=== PATIENT | female | born 1985 | race Caucasian/White ===

== ENCOUNTER 2019-03-26 11:38 | Outpatient (CLI) | payer BC, SELFPAY ==
--- NOTE | 2019-03-26 11:57 | XR_ITS ---
WS: [id number] Right hip, AP and frog leg, 03/26/2019 Clinical Data: R HIP STRAIN Comparison: None. Findings: No fractures or dislocations are seen. The hip joint is intact. The soft tissues are not remarkable. The adjacent pelvis is normal. XR/XR hip RT 2-3V wo/w pel* [id number] Impression: Negative right hip.
--- NOTE | 2019-03-26 11:57 | XR_ITS ---
WS: [id number] Lumbar spine, AP, lateral, L5-S1 spot, both obliques and flexion and extension laterals, 03/26/2019 Clinical Data: LOW BACK PAIN Comparison: None. Findings: No compression fractures or subluxation is seen. There is narrowing of the L5-S1 disc space. The villalta sverse processes and SI joints are normal. The oblique films show no spondylolysis. There is a 0.82 cm calcification overlying the central portion of the right kidney which may represen t a renal calculus. There are clips in the right upper quadrant from a cholecystectomy. There is a la rge amount of fecal material throughout the transverse and ascending colons. On flexion and extension there is no limitation of motion or subluxation. XR/XR lumbar spine 6V w f/e [id number] Impression: 1. L5-S1 degenerative disc disease. 2. Negative for limitation of motion or subluxation on flexion or extension. 3. Possible right renal calculus.
--- NOTE | 2019-03-26 11:57 | XR_ITS ---
WS: [id number] Right knee, 3 views, 03/26/2019 Clinical Data: KNEE PAIN Comparison: None. Findings: No fractures or dislocations are seen. The joint spaces are normal. The patella is intact. The soft t issues are unremarkable. XR/XR knee RT 3V* [id number] Impression: Negative right knee.
== END 2019-03-26 11:39 | disposition home or self-care (01) ==
LOC: RAD 11:43
PROVIDERS: Family Provider Nurse Practitioner Family; PCP Nurse Practitioner Family; Visit Provider Nurse Practitioner Family
DX: M51.37 Other intervertebral disc degeneration, lumbosacral region (principal); M25.561 Pain in right knee; M25.551 Pain in right hip
CPT/HCPCS: 72114; 73502; 73562

== ENCOUNTER → 2019-04-08 14:13 | Outpatient (BNVA) | payer BC, SELFPAY | PROVIDERS: Family Provider Nurse Practitioner Family; PCP Nurse Practitioner Family; Visit Provider Registered Nurse | DX: J18.9 Pneumonia, unspecified organism (principal); R05 Cough | CPT/HCPCS: 87804 ==

== ENCOUNTER → 2020-05-01 09:45 | Outpatient (BNVA) | payer OTHER, SELFPAY | PROVIDERS: Family Provider Nurse Practitioner Family; PCP Nurse Practitioner Family; Visit Provider Nurse Practitioner Women's Health | DX: N85.2 Hypertrophy of uterus (principal); R10.11 Right upper quadrant pain; R10.31 Right lower quadrant pain | CPT/HCPCS: 76830 ==

== ENCOUNTER → 2020-05-05 10:45 | Outpatient (BNVA) | payer OTHER, SELFPAY | PROVIDERS: Family Provider Nurse Practitioner Family; PCP Nurse Practitioner Family; Visit Provider Nurse Practitioner Women's Health | DX: E28.2 Polycystic ovarian syndrome (principal); R10.11 Right upper quadrant pain | CPT/HCPCS: 81025 ==

== ENCOUNTER 2020-05-18 11:22 | Outpatient (RCR) | payer OTHER, SELFPAY | END 2020-05-24 23:59 | disposition home or self-care (01) | LOC: SPT 11:22 | PROVIDERS: PCP Nurse Practitioner Family; Referring Provider Nurse Practitioner Family; Visit Provider Nurse Practitioner Family | DX: M54.17 Radiculopathy, lumbosacral region (principal) | CPT/HCPCS: 97110; 97161 ==

== ENCOUNTER 2020-05-25 06:00 | Outpatient (RCR) | payer OTHER, SELFPAY | END 2020-06-23 23:59 | disposition home or self-care (01) | LOC: SPT 06:00 | PROVIDERS: PCP Nurse Practitioner Family; Referring Provider Nurse Practitioner Family; Visit Provider Nurse Practitioner Family | DX: M54.16 Radiculopathy, lumbar region (principal) | CPT/HCPCS: 97110 ==

== ENCOUNTER → 2020-07-03 08:08 | Outpatient (BNVA) | payer OTHER, SELFPAY | PROVIDERS: PCP Nurse Practitioner Family; Visit Provider Nurse Practitioner Women's Health | DX: N93.9 Abnormal uterine and vaginal bleeding, unspecified (principal); N83.8 Other noninflammatory disorders of ovary, fallopian tube and broad ligament | CPT/HCPCS: 76830 ==

== ENCOUNTER → 2020-07-07 11:42 | Outpatient (BNVA) | payer OTHER, SELFPAY | PROVIDERS: PCP Nurse Practitioner Family; Visit Provider Nurse Practitioner Women's Health | DX: E28.2 Polycystic ovarian syndrome (principal); N93.9 Abnormal uterine and vaginal bleeding, unspecified; N20.0 Calculus of kidney; Z79.899 Other long term (current) drug therapy | CPT/HCPCS: 83036; 84439; 84443; 85025 ==

== ENCOUNTER 2020-07-20 11:09 | Emergency (ER) | payer OTHER, SELFPAY ==
[2020-07-20 11:30] VITALS: BP 143/83; PULSE 94; RESP 15; TEMP 36.9; O2SAT 98; BMI 40.2
--- NOTE | 2020-07-20 11:45 | CT_ITS ---
WS: [id number] CT ABDOMEN AND PELVIS WITH CONTRAST HISTORY: RIGHT lower quadrant pain for 2 1/2 years. TECHNIQUE: Imaging performed of the abdomen and pelvis with IV contrast. Single phase imaging of the abdomen. Coronal and sagittal reformats are submitted. All CT scans at [facility] use at least one of these dose optimization techniques: automated exposure control; mA and/or kV adjustment per patient size (includes targeted exams where dose is matched to clinical indication); or iterativ e reconstruction. IV CONTRAST: Omnipaque 300; 95 mL IV. Oral contrast: No DLP: 1926.53 mGy.cm COMPARISON: None available. Lower thorax: Lung bases are clear. Heart is normal size. No hiatal hernia. Liver/biliary system: Normal size with hepatic steatosis. Normal portal vein. Gallbladder: Status post cholecystectomy. Pancreas: Normal size pancreas and pancreatic duct. No adjacent inflammation. Spleen: Normal size spleen. No mass or infarct. Adrenal glands: Normal. Right kidney: Normal size kidney. There is a moderate-sized extrarenal pelvis. Extrarenal pelvis is 9 mm calcification not causing obstruction. Left kidney: Normal. Aorta: Normal. Lymphadenopathy: None. Free fluid: None. GI tract: Normal appendix. No GI tract obstruction. No mucosal thickening or increased fluid. Abdominal wall: Fat-containing umbilical hernia. Defect in the anterior abdominal wall is 3.2 cm. Pelvis: Normal size anteverted uterus. Small amount of increased fluid in the endometrial canal may b e related to menses. RIGHT ovarian cyst measures 3.0 cm. No free fluid. Follicle measuring 2.6 cm LEF T ovary. Bones: Unremarkable. CT/CT abdomen pelvis w con* [id number] IMPRESSION: 1. Normal appendix. 2. Small RIGHT ovarian cyst and small LEFT ovarian follicle. 3. Prominent RIGHT extrarenal pelvis. There is a nonobstructing 9 mm calcifica tion in the dependent portion of the renal pelvis. 4. Prior cholecystectomy.
--- NOTE | 2020-07-20 11:50 | ED_ITS ---
HPI - Abdominal Pain General: Chief Complaint: Abdominal Pain Stated Complaint: R sides abd pain Time Seen by Provider: 07/20/20 11:42 History of Present Illness: HPI narrative: 35 yo female with abd pain for hte last 2 yrs. She has had lobby porter and urology workups with no definitive findings. Denies any regular vomiting. She is no hematemesis coffee-ground emesis. Patient has had a cholecystectomy. She is not had appendectomy. She had section x2. She denies any medic easy melena hematemesis [place] emesis no association with urination no hematuria. MD elicited complaint: abdominal pain Pertinent past history: other (Previous gynecologic and urologic work-up negative) Onset (ago): year(s) (2) Pain Consistency: intermittent Location: RLQ and R flank Severity: moderate Quality: cramping and stabbing Radiation: R flank Exacerbating factors: nothing Relieving factors: nothing Associated Symptoms: Reports bloating, GI cramping and nausea; Denies anorexia, belching, change in bowel habits, change in stool character, chills, coffee ground emesis, constipation, diarrhea, dyspepsia, dysuria, excessive flatus, fever(s), heartburn, hematochezia, hematuria, hematemesis, fecal incontinence, loose stools, melena, poor appetite, syncope and vomiting Review of Systems Const: Denies: fever(s) or chills ENMT: Denies: throat pain, ear or mastoid pain, nasal discharge or nasal congestion Card: Denies: syncope Resp: Denies: dyspnea, productive cough or non-productive cough GI: Reports: nausea, bloating and GI cramping; Denies: vomiting, hematemesis, coffee ground emesis, heartburn, diarrhea, constipation, belching, excessive flatus, fecal incontinence, change in bowel habits, change in stool character, hematochezia or melena : Denies: dysuria or hematuria Skin/Breast: Denies: rash or pruritus PFSH ED PFSH: Medical History DDD (degenerative disc disease), lumbosacral No pertinent past medical history neghx: htn,dm,thyroid,dvt/pe PCP: VICKIE Tinajero PCOS (polycystic ovarian syndrome) Vitamin D deficiency Surgical History Hx of section 1) 10/26/2009 2) 11/29/2014 Hx of cholecystectomy Family History Mother Diabetes Heart disease Hypertension Uterine cancer dx age 25 Denies family history of Colon cancer Ovarian cancer Hypercholesteremia Breast cancer Stroke Physical Exam Const: COMMON NORMALS: no acute distress GENERAL APPEARANCE: cooperative and comfortable ORIENTATION/CONSCIOUSNESS: Yes awake, Yes oriented to person, Yes oriented to place and Yes oriented to time HENMT: COMMON NORMALS: normocephalic, atraumatic and hearing grossly normal bilaterally HEAD & SCALP: normocephalic and atraumatic Neck/C-Spine: COMMON NORMALS: no JVD Resp: COMMON NORMALS: normal respiratory effort, No retractions, No use of accessory muscles and clear to auscultation bilaterally AUSCULTATION: clear to auscultation bilaterally Cardio: COMMON NORMALS: no JVD, regular rate, regular rhythm and No murmurs present (Cardio) RATE: regular rate RHYTHM: regular rhythm GI: COMMON NORMALS: Soft to palpation and No hepatosplenomegaly present AUSCULTATION: Yes normoactive bowel sounds PALPATION: Yes Soft to palpation, No Tenderness to palpation present (GI), No Guarding due to palpation present (GI) and Yes No hepatosplenomegaly present Extremity: COMMON NORMALS: normal to inspection, capillary refill normal, no clubbing, cyanosis or edema, no calf tenderness and no pedal edema Neuro: SENSORIUM/ORIENTATION: Yes oriented to person, Yes oriented to place and Yes oriented to time Skin: COMMON NORMALS: no rashes or lesions noted GENERAL SKIN EXAM: no rashes or lesions noted Course Vital Signs: Vital signs: Vital Signs Temperature 98.4 F 07/20/20 11:30 Pulse Rate 90 07/20/20 16:32 Respiratory Rate 18 07/20/20 16:32 Blood Pressure 139/72 07/20/20 16:32 Pulse Oximetry 98 07/20/20 16:32 MDM - Abdominal Pain MDM Narrative: Medical decision making narrative: No definitive findings at this time. I would suggest she be seen by her primary care and follow-up with surgery she should have endoscopy if that is negative recommend the Nexium she does consider GI consult she may need to be evaluated for sphincter of Oddi disease. Lab Data: Labs: Lab Results 07/20/20 07/20/20 07/20/20 Range/Units 12:43 12:43 12:43 WBC Cancelled Corrected WBC Cancelled RBC Cancelled Hgb Cancelled Hct Cancelled MCV Cancelled MCH Cancelled MCHC Cancelled RDW Cancelled Plt Count Cancelled MPV Cancelled Gran % Cancelled Neut % (Auto) Cancelled Lymph % (Auto) Cancelled [place] % (Auto) Cancelled Eos % (Auto) Cancelled Baso % (Auto) Cancelled Neut # (Auto) Cancelled Lymph # (Auto) Cancelled [place] # (Auto) Cancelled Eos # (Auto) Cancelled Baso # (Auto) Cancelled Absolute Gran (aut o) Cancelled Nucleated RBC % (a uto) Cancelled Nucleated RBCs # Cancelled Sodium Cancelled Potassium Cancelled Chloride Cancelled Carbon Dioxide Cancelled Anion Gap Cancelled BUN Cancelled Creatinine Cancelled GFR Calculation Cancelled Glucose Cancelled Calculated Osmolal ity Cancelled Calcium Cancelled Total Bilirubin Cancelled AST Cancelled ALT Cancelled Alkaline Phosphata se Cancelled Total Protein Cancelled Albumin Cancelled Globulin Cancelled Lipase Cancelled HCG, Qual Cancelled Ser , [place] i-Qnt mIU/mL Urine Color (Yellow) Urine Appearance (CLEAR) Urine pH (5-7) Ur Specific Gravit y (1.005-1.030) Urine Protein (Negative) Urine Glucose (UA) (Normal) Urine Ketones (Negative) Urine Blood (Negative) Urine Nitrate (Negative) Urine Bilirubin (Negative) Urine Urobilinogen (Negative) mg/dL Ur Leukocyte [place] a[place] (Negative) Urine RBC (0-2) /hpf Urine WBC (0-5) /hpf Ur Squamous Epith Cells (0-5) /hpf Amorphous Sediment Urine Bacteria (NONE) /hpf 07/20/20 07/20/20 07/20/20 Range/Units 12:43 14:01 14:26 WBC Corrected WBC RBC Hgb Hct MCV MCH MCHC RDW Plt Count MPV Gran % Neut % (Auto) Lymph % (Auto) [place] % (Auto) Eos % (Auto) Baso % (Auto) Neut # (Auto) Lymph # (Auto) [place] # (Auto) Eos # (Auto) Baso # (Auto) Absolute Gran (aut o) Nucleated RBC % (a uto) Nucleated RBCs # Sodium 139 Potassium 3.6 Chloride 103 Carbon Dioxide 20 L Anion Gap 19.6 H BUN 10 Creatinine 0.5 GFR Calculation 141.2 H Glucose 79 Calculated Osmolal ity 286 Calcium 9.4 Total Bilirubin 0.3 AST 18 ALT 26 Alkaline Phosphata se 76 Total Protein 8.0 Albumin 4.9 Globulin 3.1 Lipase 31 HCG, Qual Negative Ser , [place] i-Qnt 0.50 mIU/mL Urine Color Yellow (Yellow) Urine Appearance Hazy A (CLEAR) Urine pH 7 (5-7) Ur Specific Gravit y 1.010 (1.005-1.030) Urine Protein Neg (Negative) Urine Glucose (UA) Norm (Normal) Urine Ketones Negative (Negative) Urine Blood 3+ H (Negative) Urine Nitrate Negative (Negative) Urine Bilirubin Neg (Negative) Urine Urobilinogen Norm (Negative) mg/dL Ur Leukocyte [place] Negative (Negative) Urine RBC 0-4 H (0-2) /hpf Urine WBC 0-4 H (0-5) /hpf Ur Squamous Epith Cells Rare (0-5) /hpf Amorphous Sediment Not Reportable Urine Bacteria Trace (NONE) /hpf 07/20/20 Range/Units 14:26 WBC 8.4 Corrected WBC RBC 4.55 Hgb 13.3 Hct 40.5 MCV 89.0 MCH 29.2 MCHC 32.8 RDW 12.9 Plt Count 309 MPV 11.3 H Gran % Neut % (Auto) 67.8 Lymph % (Auto) 24.5 [place] % (Auto) 5.5 Eos % (Auto) 1.2 Baso % (Auto) 0.8 Neut # (Auto) 5.67 Lymph # (Auto) 2.1 [place] # (Auto) 0.5 Eos # (Auto) 0.1 Baso # (Auto) 0.1 Absolute Gran (aut o) Nucleated RBC % (a uto) 0 Nucleated RBCs # 0.0 Sodium Potassium Chloride Carbon Dioxide Anion Gap BUN Creatinine GFR Calculation Glucose Calculated Osmolal ity Calcium Total Bilirubin AST ALT Alkaline Phosphata se Total Protein Albumin Globulin Lipase HCG, Qual Ser , [place] i-Qnt mIU/mL Urine Color (Yellow) Urine Appearance (CLEAR) Urine pH (5-7) Ur Specific Gravit y (1.005-1.030) Urine Protein (Negative) Urine Glucose (UA) (Normal) Urine Ketones (Negative) Urine Blood (Negative) Urine Nitrate (Negative) Urine Bilirubin (Negative) Urine Urobilinogen (Negative) mg/dL Ur Leukocyte [place] a[place] (Negative) Urine RBC (0-2) /hpf Urine WBC (0-5) /hpf Ur Squamous Epith Cells (0-5) /hpf Amorphous Sediment Urine Bacteria (NONE) /hpf Discharge Plan Discharge Patient Disposition: Home Clinical Impression: Chronic abdominal pain Condition: Stable Prescriptions: No Action multivitamin Tablet 1 tab PO PRN RF: 0 medroxyprogesterone 10 mg tablet 10 mg PO DAILY PRN (Reason: polycystic ovarian syndrome) RF: 0 Prilosec 20 mg Capsule,Delayed Release(Dr/Ec) 20 mg PO PRN RF: 0 Mery Apple Cider Vinegar Gummy 1 - 2 tab PO TID PRN (Reason: unknown) RF: 0 clindamycin-benzoyl peroxide 1-5 % gel 1 applic TOPICAL DAILY PRN (Reason: acne) RF: 0 norethindrone acetate 5 mg tablet 5 mg PO DAILY@11 RF: 0 Discharge Orders: Discharge ED (Routine); Ordered 07/20/20 Ordered By: Sanchez Wheeler Referrals: Gina Nayak [Primary Care Provider] - Patient Instructions: Abdominal Pain (ED), Opioid Safety Activity Restrictions/Additional Instructions: Follow-up with your primary care doctor Coding Level of Care Code ED Sales Operations Specialist for Chg Fwd Exam Comprehensive
[2020-07-20 14:00] LABS: Add Urine Microscopic? YES; Bacteria Urine TRACE /hpf; Bilirubin Urine Neg (Negative); Blood Urine 3+ (Negative); Glucose Urine UA Norm (Normal); Ketones Urine Negative (Negative); Leukocyte Esterase Urine Negative (Negative); Nitrate Urine Negative (Negative); Protein Urine Neg (Negative); RBC Urine 0-4 /hpf (0-2); Squamous Epithelial Cell Urine RARE /hpf (0-5); Urine Appearance Hazy (CLEAR); Urine Color Yellow (Yellow); Urobilinogen Urine Norm (Negative); WBC Urine 0-4 /hpf (0-5); pH Urine 7 (5-7)
[2020-07-20 14:32] LABS: Basophils # 0.1 10^3/uL (0.0-0.1); Basophils % 0.8 %; Eosinophils # 0.1 10^3/uL (0.0-0.8); Eosinophils % 1.2 %; Hematocrit 40.5 % (37.0-47.0); Hemoglobin 13.3 g/dL (11.5-15.3); Lymphocytes # 2.1 10^3/uL (0.8-4.8); Lymphocytes % 24.5 %; Mean Corpuscular HGB Conc 32.8 g/dL (30.0-36.0); Mean Corpuscular Hemoglobin 29.2 pg (28.0-34.0); Mean Platelet Volume 11.3 fL (7.4-10.4); Monocytes # 0.5 10^3/uL (0.2-0.9); Monocytes % 5.5 %; Neutrophils # 5.67 10^3/uL (1.8-7.7); Neutrophils % 67.8 %; Nucleated Red Blood Cells % 0 %; Platelet Count 309 10^3/cmm (130-400); Red Blood Count 4.55 10^6/uL (4.1-5.3); Red Cell Distribution Width 12.9 % (12.1-15.1); White Blood Count 8.4 10^3/uL (4.0-10.0)
[2020-07-20 14:45] LABS: Alanine Aminotransferase 26 U/L (0-33); Albumin Level 4.9 g/dL (3.5-5.2); Alkaline Phosphatase 76 IU/L (35-105); Aspartate Amino Transferase 18 U/L (0-32); Blood Urea Nitrogen 10 mg/dL (6-20); Calcium 9.4 mg/dL (8.5-10.5); Carbon Dioxide 20 mmol/L (22-29); Chloride 103 mmol/L (98-107); Globulin 3.1 g/dL (1.3-4.6); Glomerular Filtration Rate 141.2 mL/min (90-130); Glucose 79 mg/dL (65-115); Lipase 31 U/L (13-60); Osmolality Calculated 286 mOsm/kg (285-295); Sodium 139 mmol/L (136-145); Total Bilirubin 0.3 mg/dL (0.15-1.2)
[2020-07-20 14:47] LABS: Anion Gap 19.6 (5-19); Potassium 3.6 mmol/L (3.5-5.1)
[2020-07-20] MEDS: iohexol 300 mg/mL 100 mL Btl IV (14:49)
[2020-07-20 14:52] LABS: HCG, Serum Qual Negative (Negative)
[2020-07-20 16:32] VITALS: BP 139/72; PULSE 90; RESP 18; O2SAT 98
== END 2020-07-20 16:33 | disposition home or self-care (01) ==
PROVIDERS: Emergency Provider Family Medicine; PCP Nurse Practitioner Family
DX: G89.29 Other chronic pain (principal); R10.9 Unspecified abdominal pain
CPT/HCPCS: 74177; 80053; 81001; 83690; 84702; 84703; 85025; 99283; Q9967

== ENCOUNTER → 2020-07-27 15:05 | Outpatient (BNVA) | payer OTHER, SELFPAY | PROVIDERS: PCP Nurse Practitioner Family; Visit Provider Obstetrics & Gynecology | DX: N93.9 Abnormal uterine and vaginal bleeding, unspecified (principal); N92.0 Excessive and frequent menstruation with regular cycle | CPT/HCPCS: 80053; 85025; 87635 ==

== ENCOUNTER 2020-07-28 06:00 | Outpatient (CLI) | payer OTHER, SELFPAY ==
[2020-07-28 09:43] VITALS: BMI 38.9
[2020-07-28 12:09] LABS: Basophils # 0.1 10^3/uL (0.0-0.1); Basophils % 0.8 %; Eosinophils # 0.1 10^3/uL (0.0-0.8); Eosinophils % 1.4 %; Hematocrit 29.2 % (37.0-47.0); Hemoglobin 9.6 g/dL (11.5-15.3); Lymphocytes # 2.3 10^3/uL (0.8-4.8); Lymphocytes % 29.4 %; Mean Corpuscular HGB Conc 32.9 g/dL (30.0-36.0); Mean Corpuscular Hemoglobin 29.4 pg (28.0-34.0); Mean Corpuscular Volume 89.6 fL (81-99); Mean Platelet Volume 11.4 fL (7.4-10.4); Monocytes # 0.4 10^3/uL (0.2-0.9); Monocytes % 4.7 %; Neutrophils # 4.99 10^3/uL (1.8-7.7); Neutrophils % 63.1 %; Nucleated Red Blood Cells % 0 %; Platelet Count 343 10^3/cmm (130-400); Red Blood Count 3.26 10^6/uL (4.1-5.3); White Blood Count 7.9 10^3/uL (4.0-10.0)
--- NOTE | 2020-07-28 15:48 | P.ANESASSM_ITS ---
Pre-Anesthetic Assessment Pre-Anesthetic Assessment: Height/Weight: Height 1.6 m Weight 99.79 kg Preop Diagnosis: menorrhagia Proposed Procedure: Operation Date: 08/01/20 11:00 Proposed Procedures p Hysteroscopy w/ Myosure [id number] N92.0(Not Applicable) - Jane Thomas MD s Dilation And Curettage (D&C) [id number] 14647 N92.0(Not Applicable) - Jane Thomas MD Was Beta Jessica taken within 24 hours: N/A Was Clonidine taken within 24 hours: N/A Social: Social History: No alcohol and No tobacco Exam: Pre-Anes Outpt Exam: alert, oriented x 3, clear to auscultation bilaterally and regular rate & rhythm Airway: Submandibular: WNL Cervical ROM: WNL MP: 2 Dentition: Full GI: GI: GERD Metabolic: Metabolic: Morbid obesity Musc/skel: Musc/skel: Lower Back Pain Neuropsych: Neuropsych: Anxiety and Depression Anesthetic Plan: ASA status: 2 Anesthesia: General Other: PONV--?TIVA Risk of > 500 ml blood loss (7ml/kg in children): No PFSH Anesthesia PFSH: Medical History DDD (degenerative disc disease), lumbosacral No pertinent past medical history neghx: htn,dm,thyroid,dvt/pe PCP: VICKIE Tinajero PCOS (polycystic ovarian syndrome) Vitamin D deficiency Surgical History Hx of section 1) 10/26/2009 2) 11/29/2014 Hx of cholecystectomy Family History Mother Diabetes Heart disease Hypertension Uterine cancer dx age 25 Denies family history of Colon cancer Ovarian cancer Hypercholesteremia Breast cancer Stroke Data Anesthesia CBC & Chem 7: 07/28/20 10:25 Other Labs: Laboratory Results - last 48 hr 07/28/20 10:25 WBC 7.9 RBC 3.26 L Hgb 9.6 L Hct 29.2 L MCV 89.6 MCH 29.4 MCHC 32.9 RDW 13.0 Plt Count 343 MPV 11.4 H Neut % (Auto) 63.1 Lymph % (Auto) 29.4 [place] % (Auto) 4.7 Eos % (Auto) 1.4 Baso % (Auto) 0.8 Neut # (Auto) 4.99 Lymph # (Auto) 2.3 [place] # (Auto) 0.4 Eos # (Auto) 0.1 Baso # (Auto) 0.1 Nucleated RBC % (auto) 0 Nucleated RBCs # 0.0 Cardiac Studies: No Data to Display
== END 2020-07-28 06:01 | disposition home or self-care (01) ==
LOC: LAB 07-10 08:24
PROVIDERS: PCP Nurse Practitioner Family; Visit Provider Obstetrics & Gynecology
DX: N92.0 Excessive and frequent menstruation with regular cycle (principal)
CPT/HCPCS: 85025

== ENCOUNTER 2020-07-29 20:59 | Observation (INO) | payer OTHER, SELFPAY ==
[2020-07-29] VITALS (8 sets, daily range): BP systolic 139–161; BP diastolic 83–94; PULSE 100–123; RESP 17–19; TEMP 36.6–37.4; O2SAT 98–100; BMI 38.9
--- NOTE | 2020-07-29 21:00 | ECG_ITS ---
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 Measurements Intervals [place] Rate: 123 P: 21 SC: 144 QRS: 21 QRSD: 87 T: -7 QT: 337 QTc: 483 Interpretive Statements SINUS TACHYCARDIA NONSPECIFIC T-WAVE ABNORMALITY Compared to ECG 09/17/2018 22:28:23 T-wave abnormality now present Sinus rhythm no longer present Electronically Signed On 07-30-2020 22:14:50 CDT by Marcio Mac M.D. [id number]
[2020-07-29] MEDS: sodium chloride 0.9% 1,000 ML 999 ML IV (21:13)
[2020-07-29 21:18] LABS: Basophils # 0.1 10^3/uL (0.0-0.1); Basophils % 0.5 %; Eosinophils # 0.1 10^3/uL (0.0-0.8); Eosinophils % 0.6 %; Hematocrit 21.2 % (37.0-47.0); Hemoglobin 7.3 g/dL (11.5-15.3); Lymphocytes % 25.4 %; Mean Corpuscular HGB Conc 34.4 g/dL (30.0-36.0); Mean Corpuscular Hemoglobin 29.6 pg (28.0-34.0); Mean Corpuscular Volume 85.8 fL (81-99); Mean Platelet Volume 11.1 fL (7.4-10.4); Monocytes # 0.6 10^3/uL (0.2-0.9); Monocytes % 5.3 %; Neutrophils # 7.91 10^3/uL (1.8-7.7); Neutrophils % 67.6 %; Nucleated Red Blood Cells % 0 %; Platelet Count 334 10^3/cmm (130-400); Red Blood Count 2.47 10^6/uL (4.1-5.3); White Blood Count 11.7 10^3/uL (4.0-10.0)
--- NOTE | 2020-07-29 21:19 | ED_ITS ---
HPI - Female Genitourinary General: Chief complaint: Vaginal Bleeding Stated complaint: VAG BLEEDING Time Seen by Provider: 07/29/20 20:59 History of Present Illness: HPI Narrative: The patient is a 35-year-old female who comes to the ER complaining of vaginal bleeding. She was transferred from [facility]. She was sent for significant vaginal bleeding and hemoglobin of 7.9. The patient says it started with her period a few months back where she had some spotting and each. Continue to get stronger. Over the last week she has been changing a super tampon an hour and was told to come to the ER today by Dr. Thomas. She felt like she was hyperventilating and not able to make it to [facility] so she went to [facility] and was stabilized, given 2 L of fluid and transferred here. Her hemoglobin was 7.9 there. MD elicited complaint: vaginal bleeding Location of symptoms: vaginal Severity: moderate Quality of pain: cramping Vaginal bleeding: bright red Associated symptoms: Deny abdominal pain or headache(s) Date of Last Menstrual Period: 07/29/20 Review of Systems General: Reports: 10 or more systems reviewed and unremarkable except in HPI and below Const: Denies: fatigue Eyes: Denies: change in vision, blurry vision or eye redness ENMT: Denies: throat pain, swelling of lips/tongue, ear or mastoid pain or nasal congestion Card: Denies: chest pain, palpitations, irregular heart rhythm, edema, dyspnea on exertion or orthopnea Resp: Denies: dyspnea, productive cough or non-productive cough GI: Denies: abdominal pain, diarrhea or GI cramping : Denies: flank pain, difficulty voiding, urinary frequency or urinary urgency Musc: Denies: neck pain, back pain, extremity pain, joint pain, joint redness, limited range of motion or muscle weakness Skin/Breast: Denies: rash, pruritus, erythema, skin pain or skin tenderness Neuro: Denies: headache(s), numbness in extremities, weakness in extremities, sensory changes, difficulty walking, dizziness, confusion or Slurred speech present Psych: Reports: anxiety; Denies: depression Endo: Denies: polyuria All/Imm: Denies: urticaria, throat swelling or tongue swelling PFSH ED PFSH: Medical History DDD (degenerative disc disease), lumbosacral No pertinent past medical history neghx: htn,dm,thyroid,dvt/pe PCP: VICKIE Tinajero PCOS (polycystic ovarian syndrome) Vitamin D deficiency Surgical History Hx of section 1) 10/26/2009 2) 11/29/2014 Hx of cholecystectomy Family History Mother Diabetes Heart disease Hypertension Uterine cancer dx age 25 Denies family history of Colon cancer Ovarian cancer Hypercholesteremia Breast cancer Stroke Female Reproductive History: Date of last menstrual period: 07/29/20 Physical Exam Const: COMMON NORMALS: no acute distress, average body habitus, patient oriented x3, no limitations, healthy appearing, alert and well nourished G ENERAL APPEARANCE: cooperative, comfortable, well kempt, well developed and anxious ORIENTATION/CONSCIOUSNESS: Yes awake, Yes oriented to person, Yes oriented to place and Yes oriented to time HENMT: COMMON NORMALS: normocephalic, external ears normal and Normal external nose present HEAD & SCALP: normal to inspection and normocephalic NOSE: Normal external nose present EXTERNAL EAR: Yes external ears normal MOUTH: Normal oral and palatal mucosa present THROAT: posterior oropharynx normal Eye: COMMON NORMALS: Equal, round and reactive pupils present and EOMs intact bilaterally GENERAL EYE: appearance normal, both eyes and all related structures PUPIL: Yes Equal, round and reactive pupils present Neck/C-Spine: COMMON NORMALS: full ROM, no lymphadenopathy, no meningeal signs and no JVD GENERAL: Yes normal visual inspection Lymph: LYMPHATIC: no lymphadenopathy noted Chest: COMMONS NORMALS: normal inspection of the chest and normal palpation of entire chest wall Resp: COMMON NORMALS: normal respiratory effort, No retractions, No use of accessory muscles, clear to auscultation bilaterally and percussion normal EFFORT & INSPECTION: Yes able to speak in complete sentences AUSCULTATION: clear to auscultation bilaterally PERCUSSION: percussion normal Cardio: COMMON NORMALS: no JVD, regular rate, regular rhythm, S1 normal heart sound present, S2 normal heart sound present and Peripheral pulses 2+ throughout RATE: regular rate RHYTHM: regular rhythm HEART SOUNDS: S1 normal heart sound present and S2 normal heart sound present PERIPHERAL PULSES: Peripheral pulses 2+ throughout GI: COMMON NORMALS: Normal to inspection, nondistended, normoactive bowel sounds present, Soft to palpation, non-tender and no masses INSPECTION: Yes normal to inspection PALPATION: Yes Soft to palpation : COMMON NORMALS: Yes no CVA tenderness BLADDER/KIDNEY EXAM: Yes no CVA tenderness Back/Pelvis: COMMON NORMALS: no CVA tenderness, thoracic and lumbar spine normal to inspection, no thoracic nor lumbar tenderness and thoraco-lumbar ROM normal Extremity: COMMON NORMALS: normal to inspection, full ROM, capillary refill normal, no joint enlargement and no pedal edema GENERAL: Yes normal exam except as noted Neuro: COMMON NORMALS: patient oriented x3, CN's II-XII intact bilaterally, moves all extremities, no focal motor deficits, no sensory deficits noted and gait normal SENSORIUM/ORIENTATION: Yes alert, Yes oriented to person, Yes oriented to place and Yes oriented to time MENINGEAL SIGNS: Yes no meningeal signs Psych: COMMON NORMALS: mental status grossly normal, Normal thought process present, cooperative, normal affect and speech normal APPEARANCE: Yes well kempt ATTITUDE: Yes calm SPEECH: Yes normal speech THOUGHT PROCESS: Normal thought process present Skin: COMMON NORMALS: no rashes or lesions noted GENERAL SKIN EXAM: no rashes or lesions noted Course Vital Signs: Vital signs: Vital Signs Temperature 99.3 F 07/29/20 22:19 Pulse Rate 108 H 07/29/20 22:19 Respiratory Rate 18 07/29/20 22:19 Blood Pressure 160/94 07/29/20 22:19 Pulse Oximetry 98 07/29/20 22:19 MDM - Female MDM Narrative: Medical decision making narrative: Patient's hemoglobin 7.3. Hours ago it was 7.9. She was given 2 L of fluid during that time. Discussed with Dr. Thomas that she continues to bleed and recommended she come evaluate for possible surgery. She is on her way to see her. Dr. Thomas is here, has seen the patient, and accepts to OB. She will be transfused 1 unit of PRBCs. Lab Data: Labs: Lab Results 07/29/20 07/29/20 07/29/20 Range/Units 21:06 21:06 21:06 WBC 11.7 H (4.0-10.0) 10^3/ uL RBC 2.47 L (4.1-5.3) 10^6/u L Hgb 7.3 L (11.5-15.3) g/dL Hct 21.2 L (37.0-47.0) % MCV 85.8 (81-99) fL MCH 29.6 (28.0-34.0) pg MCHC 34.4 (30.0-36.0) g/dL RDW 13.0 (12.1-15.1) % Plt Count 334 (130-400) 10^3/c mm MPV 11.1 H (7.4-10.4) fL Neut % (Auto) 67.6 % Lymph % (Auto) 25.4 % Haralson % (Auto) 5.3 % Eos % (Auto) 0.6 % Baso % (Auto) 0.5 % Neut # (Auto) 7.91 H (1.8-7.7) 10^3/u L Lymph # (Auto) 3.0 (0.8-4.8) 10^3/u L Har[place]on # (Auto) 0.6 (0.2-0.9) 10^3/u L Eos # (Auto) 0.1 (0.0-0.8) 10^3/u L Baso # (Auto) 0.1 (0.0-0.1) 10^3/u L Nucleated RBC % (a uto) 0 % Nucleated RBCs # 0.0 /100WBC Sodium 139 (136-145) mmol/L Potassium 3.4 L (3.5-5.1) mmol/L Chloride 107 (98-107) mmol/L Carbon Dioxide 22 (22-29) mmol/L Anion Gap 13.4 (5-19) BUN 5 L (6-20) mg/dL Creatinine 0.5 (0.5-0.9) mg/dL GFR Calculation 141.2 H (90-130) mL/min Glucose 109 (65-115) mg/dL Calculated Osmolal ity 286 (285-295) mOsm/k g Calcium 8.1 L (8.5-10.5) mg/dL Total Bilirubin 0.2 (0.15-1.2) mg/dL AST 20 (0-32) U/L ALT 20 (0-33) U/L Alkaline Phosphata se 54 (35-105) IU/L Total Protein 6.5 L (6.6-8.7) g/dL Albumin 3.9 (3.5-5.2) g/dL Globulin 2.6 (1.3-4.6) g/dL HCG, Qual Negative (Negative) Urine Color (Yellow) Urine Appearance (CLEAR) Urine pH (5-7) Ur Specific Gravit y (1.005-1.030) Urine Protein (Negative) Urine Glucose (UA) (Normal) Urine Ketones (Negative) Urine Blood (Negative) Urine Nitrate (Negative) Urine Bilirubin (Negative) Prot Sulfosalicyli c Acd (Negative) Urine Urobilinogen (Negative) mg/dL Ur Leukocyte Alma ase (Negative) Urine RBC (0-2) /hpf Urine WBC (0-5) /hpf Ur Squamous Epith Cells (0-5) /hpf Amorphous Sediment Urine Bacteria (NONE) /hpf Blood Type Rho(D) Type Antibody Screen Crossmatch 07/29/20 07/29/20 Range/Units 21:06 21:23 WBC (4.0-10.0) 10^3/ uL RBC (4.1-5.3) 10^6/u L Hgb (11.5-15.3) g/dL Hct (37.0-47.0) % MCV (81-99) fL MCH (28.0-34.0) pg MCHC (30.0-36.0) g/dL RDW (12.1-15.1) % Plt Count (130-400) 10^3/c mm MPV (7.4-10.4) fL Neut % (Auto) % Lymph % (Auto) % Haralson % (Auto) % Eos % (Auto) % Baso % (Auto) % Neut # (Auto) (1.8-7.7) 10^3/u L Lymph # (Auto) (0.8-4.8) 10^3/u L Haralson # (Auto) (0.2-0.9) 10^3/u L Eos # (Auto) (0.0-0.8) 10^3/u L Baso # (Auto) (0.0-0.1) 10^3/u L Nucleated RBC % (a uto) % Nucleated RBCs # /100WBC Sodium (136-145) mmol/L Potassium (3.5-5.1) mmol/L Chloride (98-107) mmol/L Carbon Dioxide (22-29) mmol/L Anion Gap (5-19) BUN (6-20) mg/dL Creatinine (0.5-0.9) mg/dL GFR Calculation (90-130) mL/min Glucose (65-115) mg/dL Calculated Osmolal ity (285-295) mOsm/k g Calcium (8.5-10.5) mg/dL Total Bilirubin (0.15-1.2) mg/dL AST (0-32) U/L ALT (0-33) U/L Alkaline Phosphata se (35-105) IU/L Total Protein (6.6-8.7) g/dL Albumin (3.5-5.2) g/dL Globulin (1.3-4.6) g/dL HCG, Qual (Negative) Urine Color Red (Yellow) Urine Appearance Cloudy (CLEAR) Urine pH 8 H (5-7) Ur Specific Gravit y 1.010 (1.005-1.030) Urine Protein 2+ H (Negative) Urine Glucose (UA) Norm (Normal) Urine Ketones Negative (Negative) Urine Blood 3+ H (Negative) Urine Nitrate Negative (Negative) Urine Bilirubin Neg (Negative) Prot Sulfosalicyli c Acd Positive (Negative) Urine Urobilinogen Norm (Negative) mg/dL Ur Leukocyte Alma ase Trace H (Negative) Urine RBC >100 H (0-2) /hpf Urine WBC 15-25 H (0-5) /hpf Ur Squamous Epith Cells 5-10 H (0-5) /hpf Amorphous Sediment Not Reportable Urine Bacteria Trace (NONE) /hpf Blood Type B Positive Rho(D) Type Positive / 4+ Antibody Screen Negative Crossmatch See Detail Discharge Plan Discharge Patient Disposition: Admitted As Inpatient Clinical Impression: Vaginal bleeding, Severe anemia Condition: Stable Coding Level of Care Code ED Radar Scientist for Renetta Fwd Exam Comprehensive
[2020-07-29 21:26] LABS: HCG, Serum Qual Negative (Negative)
[2020-07-29 21:34] LABS: Alanine Aminotransferase 20 U/L (0-33); Albumin Level 3.9 g/dL (3.5-5.2); Alkaline Phosphatase 54 IU/L (35-105); Anion Gap 13.4 (5-19); Aspartate Amino Transferase 20 U/L (0-32); Blood Urea Nitrogen 5 mg/dL (6-20); Calcium 8.1 mg/dL (8.5-10.5); Carbon Dioxide 22 mmol/L (22-29); Chloride 107 mmol/L (98-107); Globulin 2.6 g/dL (1.3-4.6); Glomerular Filtration Rate 141.2 mL/min (90-130); Glucose 109 mg/dL (65-115); Osmolality Calculated 286 mOsm/kg (285-295); Potassium 3.4 mmol/L (3.5-5.1); Sodium 139 mmol/L (136-145); Total Bilirubin 0.2 mg/dL (0.15-1.2); Total Protein 6.5 g/dL (6.6-8.7)
[2020-07-29 22:11] LABS: Glucose Urine UA Norm (Normal); Ketones Urine Negative (Negative); Protein Urine 2+ (Negative); Urine Appearance Cloudy (CLEAR); Urine Color Red (Yellow); pH Urine 8 (5-7)
[2020-07-29 22:12] LABS: Add Urine Microscopic? YES; Bilirubin Urine Neg (Negative); Blood Urine 3+ (Negative); Leukocyte Esterase Urine Trace (Negative); Nitrate Urine Negative (Negative); Sulfosalicylic Acid Urine Positive (Negative); Urobilinogen Urine Norm (Negative)
--- NOTE | 2020-07-29 22:12 | P.HP_ITS ---
Providers/Chief Complaint Admitting Physician: Martha Primary Care Provider: Gina Nayak Chief Complaint: VAG BLEEDING History of Present Illness Augusta Luna is a 35 year old female Medications/Allergies Home Medications Medication Instructions Recorded Confirmed Last Taken Type multivitamin 1 tab PO PRN 03/30/20 07/28/20 Unknown History Mery Apple Cider Vinegar Gummy 1 - 2 tab PO TID PRN 07/20/20 07/28/20 07/20/20 07:30 History 2 tabs clindamycin-benzoyl peroxide 1 applic TOPICAL DAILY PRN 07/20/20 07/28/20 Unknown History norethindrone acetate 5 mg PO DAILY@11 07/20/20 07/28/20 07/19/20 History omeprazole [Prilosec] 20 mg PO PRN 07/20/20 07/28/20 Unknown History tramadol 50 mg tablet 50 mg PO Q8H PRN 07/27/20 07/28/20 Unknown History Allergies Allergy/AdvReac Type Severity Reaction Status Date / Time No Known Allergies Allergy Verified 07/29/20 21:16 PFSH Acute PFSH: Medical History DDD (degenerative disc disease), lumbosacral No pertinent past medical history neghx: htn,dm,thyroid,dvt/pe PCP: VICKIE Tinajero PCOS (polycystic ovarian syndrome) Vitamin D deficiency Surgical History Hx of section 1) 10/26/2009 2) 11/29/2014 Hx of cholecystectomy Family History Mother Diabetes Heart disease Hypertension Uterine cancer dx age 25 Denies family history of Colon cancer Ovarian cancer Hypercholesteremia Breast cancer Stroke Female Reproductive History: Date of last menstrual period: 07/29/20 Vitals/I&O/Wt Last Vital Signs Temp 99.3 F 07/29/20 21:16 Pulse 123 H 07/29/20 21:23 Resp 18 07/29/20 21:16 BP 155/91 07/29/20 21:16 Pulse Ox 99 07/29/20 21:16 Weight last 48 hrs Weight 220 lb Data : 07/29/20 21:06 07/29/20 21:06 Coding Level of Care Code Acute Sound Equipment Mechanic for Renetta Rush
[2020-07-29 22:13] LABS: Add Urine Culture? Yes; Bacteria Urine TRACE /hpf; RBC Urine >100 /hpf (0-2); WBC Urine 15-25 /hpf (0-5)
--- NOTE | 2020-07-29 22:13 | W.PM.OPSUD ---
Surgery/Procedure H&P Update DATE OF PROCEDURE: July 29, 2020 DATE H&P PERFORMED: 07/27/20 H&P UPDATE INFORMATION: I have reviewed H&P completed within last 30 days, I have examined patient prior to procedure and Changes to prior documentation as noted here CHANGES TO PREVIOUS DOCUMENTATION: The patient's bleeding has increased. She now has a hemoglobin of 7.3, down from 13.3 about a week ago and has orthostatic hypotension and tachycardia. She cannot wait until Friday for Surgery. She presented to the ER by ambulance. She will receive a unit of blood and will be taken emergently to the operating room. PREOP DIAGNOSIS: menorrhagia, anemia PRIMARY INDICATION FOR PROCEDURE: abnormal uterine bleeding and symtommatic anemia. PLANNED PROCEDURE: hysteroscopy, dilation and curettage with myosure.
--- NOTE | 2020-07-29 22:39 | ANES.PAUD2 ---
Pre-Anesthetic Update Pre-Anesthetic Assessment: Date of Surgery/Procedure: 07/29/20 Preop Diagnosis: menorrhagia, anemia Proposed Procedure: Operation Date: 07/29/20 22:40 Proposed Procedures p Hysteroscopy w/ Myosure & D&C(Not Applicable) - Jane Thomas MD Any changes to Pre-Anesthetic Assessment?: Yes Changes from Pre-Anesthetic Assessment: Patient devoped interval increase in vaginal bleeding leading to tachycardia and dizziness and acute drop in hgb to 7.9. Received 1 L fluids in outside ER. Currently receiving 1 unit prbcs. Last Intake: Intake Last Liquid Date 07/29/20 Last Liquid Time 13:30 Last Solid Date 07/29/20 Last Solid Time 13:30 Labs Last 48hrs: Laboratory Results - last 48 hr 07/29/20 07/29/20 07/29/20 21:06 21:06 21:06 WBC 11.7 H RBC 2.47 L Hgb 7.3 L Hct 21.2 L MCV 85.8 MCH 29.6 MCHC 34.4 RDW 13.0 Plt Count 334 MPV 11.1 H Neut % (Auto) 67.6 Lymph % (Auto) 25.4 Churchill % (Auto) 5.3 Eos % (Auto) 0.6 Baso % (Auto) 0.5 Neut # (Auto) 7.91 H Lymph # (Auto) 3.0 Churchill # (Auto) 0.6 Eos # (Auto) 0.1 Baso # (Auto) 0.1 Nucleated RBC % (a uto) 0 Nucleated RBCs # 0.0 Sodium 139 Potassium 3.4 L Chloride 107 Carbon Dioxide 22 Anion Gap 13.4 BUN 5 L Creatinine 0.5 GFR Calculation 141.2 H Glucose 109 Calculated Osmolal ity 286 Calcium 8.1 L Total Bilirubin 0.2 AST 20 ALT 20 Alkaline Phosphata se 54 Total Protein 6.5 L Albumin 3.9 Globulin 2.6 HCG, Qual Negative Urine Color Urine Appearance Urine pH Ur Specific Gravit y Urine Protein Urine Glucose (UA) Urine Ketones Urine Blood Urine Nitrate Urine Bilirubin Prot Sulfosalicyli c Acd Urine Urobilinogen Ur Leukocyte Alma ase Urine RBC Urine WBC Ur Squamous Epith Cells Amorphous Sediment Urine Bacteria Blood Type Rho(D) Type Antibody Screen Crossmatch 07/29/20 07/29/20 21:06 21:23 WBC RBC Hgb Hct MCV MCH MCHC RDW Plt Count MPV Neut % (Auto) Lymph % (Auto) [place] % (Auto) Eos % (Auto) Baso % (Auto) Neut # (Auto) Lymph # (Auto) Churchill # (Auto) Eos # (Auto) Baso # (Auto) Nucleated RBC % (a uto) Nucleated RBCs # Sodium Potassium Chloride Carbon Dioxide Anion Gap BUN Creatinine GFR Calculation Glucose Calculated Osmolal ity Calcium Total Bilirubin AST ALT Alkaline Phosphata se Total Protein Albumin Globulin HCG, Qual Urine Color Red Urine Appearance Cloudy Urine pH 8 H Ur Specific Gravit y 1.010 Urine Protein 2+ H Urine Glucose (UA) Norm Urine Ketones Negative Urine Blood 3+ H Urine Nitrate Negative Urine Bilirubin Neg Prot Sulfosalicyli c Acd Positive Urine Urobilinogen Norm Ur Leukocyte Alma ase Trace H Urine RBC >100 H Urine WBC 15-25 H Ur Squamous Epith Cells 5-10 H Amorphous Sediment Not Reportable Urine Bacteria Trace Blood Type B Positive Rho(D) Type Positive / 4+ Antibody Screen Negative Crossmatch See Detail Vitals: Temperature 99.0 F 07/29/20 22:37 Temperature Source Oral 07/29/20 22:37 Pulse Rate 106 H 07/29/20 22:37 Pulse Rhythm 07/29/20 22:37 Pulse Strength 3+ Normal 07/29/20 21:12 Respiratory Rate 18 07/29/20 22:37 Respiratory Effort Short of Breath 07/29/20 22:37 Respiratory Depth Normal 07/29/20 22:37 Respiratory Patter n 07/29/20 21:12 Blood Pressure 161/87 07/29/20 22:37 Blood Pressure Daniela n 111 07/29/20 22:37 Blood Pressure Pos ition Semi Fowlers 07/29/20 22:37 Pulse Oximetry 98 07/29/20 22:37 Oxygen Delivery Me thod 07/29/20 21:16 Sepsis Recent Feve r Within 48 Hours No 07/29/20 21:12 Sepsis New/Unexpla ined Change in Men alissa Status No 07/29/20 21:12 Exam: Pre-Anes Outpt Exam: alert, oriented x 3 and clear to auscultation bilaterally Additional Exam Findings (including area of procedure): tachycardia Other Pertinent Information: Other Pertinent Information: NPO since 1330, currently receiving blood (1 unit prbcs) Cardiac Studies: No Data to Display
--- NOTE | 2020-07-29 22:54 | PC.NURSE ---
pt to surgery. transfusion continued to be monitored by surgery RN. pt tolerated transfusion well.
[2020-07-29] MEDS: ceFAZolin 1,000 mg SDV 2000 MG IVP (23:00)
--- NOTE | 2020-07-29 23:40 | SUR.OPER ---
2338 myosure finished 75 intrauterine, 80mmhg, [id number] deficet
--- NOTE | 2020-07-29 23:53 | P.OP_ITS ---
Operative Report Date of procedure: July 29, 2020 Pre-op Diagnosis: menorrhagia, anemia Post-op diagnosis: same Post-op Diagnosis: excessive tissue Procedure Done: hysteroscopy, dilation and curettage with myosure Specimens removed/disposition: endocervical curettings Surgeon: Jane Thomas Anesthesia: MAC Estimated blood loss (mL): 5 IV fluids (mL): 400 IV fluids: one unit of blood intraoperatively Urine output (mL): 25 Complications: dilated cervix caused the hysteroscopy fluid to leak Findings: 12 week sized uterus 1585 ml of hysteroscopy fluid deficit Condition: stable Disposition: floor Brief History: The patient presented to the ER with complaints of increased vaginal bleeding. She was found to have dropped her hemoglobin from 13.3, 9 days before to 7.3 on admission. She had surgery scheduled for Friday. Procedure: The patient was taken to the operating room where monitored anesthesia was administered and to be adequate. She was prepped and draped in the normal sterile fashion in the dorsal lithotomy position in [facility]. A weighted speculum was placed into the vagina and the anterior lip of the cerv ix grasped with a single-tooth tenaculum. The uterus was sounded to [ ] danish. The cervix was already dilated from her heavy bleeding. The hysteroscope was advanced into the endometrial cavity. There was excessive tissue visualized. The MyoSure device was activated and the tissue was removed. Pictures were taken pre and post procedure. All instruments were removed. The patient tolerated the procedure well. Sponge lap and needle counts were correct x3. She was taken to the recovery room in stable condition.
[2020-07-30] VITALS (19 sets, daily range): BP systolic 103–154; BP diastolic 68–91; PULSE 68–102; RESP 16–20; TEMP 36.6–36.7; O2SAT 93–100; BMI 38.9
[2020-07-30] MEDS: ketorolac 30 mg/mL INJ IVP ×2 (02:15→07:37)
[2020-07-30 07:18] LABS: Hematocrit 25.4 % (37.0-47.0); Hemoglobin 8.4 g/dL (11.5-15.3); Mean Corpuscular HGB Conc 33.1 g/dL (30.0-36.0); Mean Corpuscular Hemoglobin 29.8 pg (28.0-34.0); Mean Corpuscular Volume 90.1 fL (81-99); Platelet Count 298 10^3/cmm (130-400); Red Blood Count 2.82 10^6/uL (4.1-5.3); Red Cell Distribution Width 13.8 % (12.1-15.1); White Blood Count 13.1 10^3/uL (4.0-10.0)
--- NOTE | 2020-07-30 09:07 | P.CONIM_ITS ---
Providers/Reason For Consult Consulting Physician/Specialty*: Dr. Jane Thomas MD Reason for Consult*: severe menorrhagia Requesting Physician: Dr Thomas Attending Physician: Jane Thomas MD Primary Care Provider: Gina Nayak History of Present Illness History of Present Illness Augusta Luna is a 35 year old female who presents to the ER with complaints of worsening vaginal bleeding with orthostatic hypotension and tachycardia. Her pulse is 155 on admission. Her Hemoglobin has gone from 13.3 on 07/20 to 7.3 tonight. She was scheduled for surgery on Friday, but needs to have emergent surgery tonight for the bleeding. Review of Systems General: Reports: 10 or more systems reviewed and unremarkable except in HPI and below Meds/Allergies Home Medications and Allergies Home Medications Medication Instructions Recorded Confirmed Last Taken Type multivitamin 1 tab PO PRN 03/30/20 07/28/20 Unknown History Mery Apple Cider Vinegar Gummy 1 - 2 tab PO TID PRN 07/20/20 07/28/20 07/20/20 07:30 History 2 tabs clindamycin-benzoyl peroxide 1 applic TOPICAL DAILY PRN 07/20/20 07/28/20 Unknown History norethindrone acetate 5 mg PO DAILY@11 07/20/20 07/28/20 07/19/20 History omeprazole [Prilosec] 20 mg PO PRN 07/20/20 07/28/20 Unknown History tramadol 50 mg tablet 50 mg PO Q8H PRN 07/27/20 07/28/20 Unknown History Allergies Allergy/AdvReac Type Severity Reaction Status Date / Time No Known Allergies Allergy Verified 07/29/20 21:16 Current Medications Current Medications Generic Name Dose Route Start Last Admin Trade Name Freq PRN Reason Stop Dose Admin Tranexamic Acid 1,000 mg/ 110 mls @ 330 mls/hr 07/30/20 23:49 07/29/20 23:52 Sodium Chloride IV 07/31/20 00:08 Infused ONCE ONE Infusion Ketorolac Tromethamine 30 mg 07/30/20 00:15 07/30/20 07:37 Ketorolac 30 Mg/Ml Inj IVP 07/30/20 18:16 30 mg Q6H URIAH Administration PFSH Acute PFSH: Medical History DDD (degenerative disc disease), lumbosacral No pertinent past medical history neghx: htn,dm,thyroid,dvt/pe PCP: VICKIE Tinajero PCOS (polycystic ovarian syndrome) Vitamin D deficiency Surgical History Hx of section 1) 10/26/2009 2) 11/29/2014 Hx of cholecystectomy Family History Mother Diabetes Heart disease Hypertension Uterine cancer dx age 25 Denies family history of Colon cancer Ovarian cancer Hypercholesteremia Breast cancer Stroke Female Reproductive History: Date of last menstrual period: 07/29/20 Vitals/I&O/Wt Last Vital Signs Temp 97.9 F 07/30/20 05:20 Pulse 80 07/30/20 07:53 Resp 16 07/30/20 07:49 BP 104/69 07/30/20 07:15 Pulse Ox 99 07/30/20 07:49 07/29/20 07/30/20 07/30/20 22:59 06:59 14:59 Intake Total 0 / 0 110 / 110 Output Total 730 / 730 Balance 0 / 0 -620 / -620 Weight last 48 hrs Weight 219 lb 15.988 oz Weight 220 lb Physical Exam Const: COMMON NORMALS: patient oriented x3, no limitations, alert and well nourished GENERAL APPEARANCE: cooperative, well kempt, well developed, anxious, ill appearing and other (pale) ORIENTATION/CONSCIOUSNESS: Yes awake, Yes oriented to person, Yes oriented to place and Yes oriented to time Neck/C-Spine: COMMON NORMALS: full ROM and supple Resp: COMMON NORMALS: normal respiratory effort EFFORT & INSPECTION: Yes able to speak in complete sentences GI: COMMON NORMALS: Soft to palpation and non-tender PALPATION: Yes Soft to palpation Extremity: COMMON NORMALS: no clubbing, cyanosis or edema Neuro: COMMON NORMALS: patient oriented x3 SENSORIUM/ORIENTATION: Yes alert, Yes oriented to person, Yes oriented to place and Yes oriented to time Psych: COMMON NORMALS: mental status grossly normal, Normal thought process present, cooperative, normal affect, speech normal and activity/motor behavior normal APPEARANCE: Yes grossly normal and Yes well kempt ATTITUDE: Yes calm and Yes engaged ACTIVITY/MOTOR BEHAVIOR: Yes appropriate eye contact SPEECH: Yes normal speech THOUGHT PROCESS: Normal thought process present A&P Assessment and plan (1) Abnormal uterine bleeding (AUB): plan to take the patient for hysteroscopy, dilation and curettage with myosure tonight Status: Acute (2) Tachycardia: Status: Acute (3) Severe anemia: Status: Acute Coding Level of Care Code Acute [employer] Worker for [facility] Diagnoses Abnormal uterine bleeding (AUB) N93.9 Tachycardia R00.0 Severe anemia D64.9
--- NOTE | 2020-07-30 09:15 | PM.DCS ---
Discharge Providers Date of Admission: 07/30/20 00:07 Date of Discharge: July 30, 2020 Attending Provider at Admission: Jane Thomas MD Attending Provider at Discharge: Jane Thomas MD Primary Care Provider: Gina Nayak Diagnoses at Discharge Discharge Diagnosis (1) Abnormal uterine bleeding (AUB): Status: Acute (2) Tachycardia: Status: Acute (3) Severe anemia: Status: Acute Reason for Visit Reason for Visit: VAG BLEEDING Hospital Course Hospital Course The patient was admitted from the ER for surgery. She received one unit of blood pre and intraoperatively. She did well postoperatively and was ready for discharge on POD#1 Physical Exam Const: COMMON NORMALS: no acute distress, patient oriented x3, no limitations, healthy appearing, alert and well nourished GENERAL APPEARANCE: cooperative, comfortable, well kempt and well developed ORIENTATION/CONSCIOUSNESS: Yes awake, Yes oriented to person, Yes oriented to place and Yes oriented to time Neck/C-Spine: COMMON NORMALS: full ROM and supple Resp: COMMON NORMALS: normal respiratory effort EFFORT & INSPECTION: Yes able to speak in complete sentences GI: COMMON NORMALS: Soft to palpation and non-tender PALPATION: Yes Soft to palpation Extremity: COMMON NORMALS: no clubbing, cyanosis or edema Neuro: COMMON NORMALS: patient oriented x3 SENSORIUM/ORIENTATION: Yes alert, Yes oriented to person, Yes oriented to place and Yes oriented to time Psych: COMMON NORMALS: mental status grossly normal, Normal thought process present, cooperative, normal affect and speech normal APPEARANCE: Yes well kempt ATTITUDE: Yes calm and Yes engaged ACTIVITY/MOTOR BEHAVIOR: Yes appropriate eye contact SPEECH: Yes normal speech THOUGHT PROCESS: Normal thought process present Discharge Data Data Completed and Pending: Pending at discharge Category Date Time Status Urine Culture Sta t Lab 07/29/20 21:23 Received Pathology: Surgic al [PTH] Routine Pth 07/30/20 01:22 Ordered Labs from last 24 hours 07/30/20 07/29/20 07/29/20 07:05 21:23 21:06 WBC 13.1 H RBC 2.82 L Hgb 8.4 L Hct 25.4 L MCV 90.1 D MCH 29.8 MCHC 33.1 RDW 13.8 Plt Count 298 MPV 11.0 H Neut % (Auto) Lymph % (Auto) [place] % (Auto) Eos % (Auto) Baso % (Auto) Neut # (Auto) Lymph # (Auto) [place] # (Auto) Eos # (Auto) Baso # (Auto) Nucleated RBC % (a uto) Nucleated RBCs # Sodium Potassium Chloride Carbon Dioxide Anion Gap BUN Creatinine GFR Calculation Glucose Calculated Osmolal ity Calcium Total Bilirubin AST ALT Alkaline Phosphata se Total Protein Albumin Globulin HCG, Qual Urine Color Red Urine Appearance Cloudy Urine pH 8 H Ur Specific Gravit y 1.010 Urine Protein 2+ H Urine Glucose (UA) Norm Urine Ketones Negative Urine Blood 3+ H Urine Nitrate Negative Urine Bilirubin Neg Prot Sulfosalicyli c Acd Positive Urine Urobilinogen Norm Ur Leukocyte [place] Trace H Urine RBC >100 H Urine WBC 15-25 H Ur Squamous Epith Cells 5-10 H Amorphous Sediment Not Reportable Urine Bacteria Trace Blood Type B Positive Rho(D) Type Positive / 4+ Antibody Screen Negative Crossmatch See Detail 07/29/20 07/29/20 07/29/20 21:06 21:06 21:06 WBC 11.7 H RBC 2.47 L Hgb 7.3 L Hct 21.2 L MCV 85.8 MCH 29.6 MCHC 34.4 RDW 13.0 Plt Count 334 MPV 11.1 H Neut % (Auto) 67.6 Lymph % (Auto) 25.4 [place] % (Auto) 5.3 Eos % (Auto) 0.6 Baso % (Auto) 0.5 Neut # (Auto) 7.91 H Lymph # (Auto) 3.0 [place] # (Auto) 0.6 Eos # (Auto) 0.1 Baso # (Auto) 0.1 Nucleated RBC % (a uto) 0 Nucleated RBCs # 0.0 Sodium 139 Potassium 3.4 L Chloride 107 Carbon Dioxide 22 Anion Gap 13.4 BUN 5 L Creatinine 0.5 GFR Calculation 141.2 H Glucose 109 Calculated Osmolal ity 286 Calcium 8.1 L Total Bilirubin 0.2 AST 20 ALT 20 Alkaline Phosphata se 54 Total Protein 6.5 L Albumin 3.9 Globulin 2.6 HCG, Qual Negative Urine Color Urine Appearance Urine pH Ur Specific Gravit y Urine Protein Urine Glucose (UA) Urine Ketones Urine Blood Urine Nitrate Urine Bilirubin Prot Sulfosalicyli c Acd Urine Urobilinogen Ur Leukocyte [place] Urine RBC Urine WBC Ur Squamous Epith Cells Amorphous Sediment Urine Bacteria Blood Type Rho(D) Type Antibody Screen Crossmatch Vitals: Last Vital Signs Temp 97.9 F 07/30/20 05:20 Pulse 80 07/30/20 07:53 Resp 16 07/30/20 07:49 BP 104/69 07/30/20 07:15 Pulse Ox 99 07/30/20 07:49 Discharge Plan Discharge Patient Disposition: Home Condition: Stable Prescriptions: Continued multivitamin Tablet 1 tab PO PRN RF: 0 tramadol 50 mg tablet 50 mg PO Q8H PRN (Reason: Pain) RF: 0 omeprazole 20 mg Capsule,Delayed Release(Dr/Ec) 20 mg PO PRN RF: 0 Mery Apple Cider Vinegar Gummy 1 - 2 tab PO TID PRN (Reason: unknown) RF: 0 clindamycin-benzoyl peroxide 1-5 % gel 1 applic TOPICAL DAILY PRN (Reason: acne) RF: 0 norethindrone acetate 5 mg tablet 5 mg PO DAILY@11 RF: 0 Discharge Orders: Discharge Order (Routine); Ordered 07/30/20 Ordered By: Jane Thomas Referrals: Gina Nayak [Primary Care Provider] - Patient Instructions: Opioid Safety Discharge Attestations Time Spent in Discharge Care*: less than 30 min Quality Metrics Clinical Quality Measures During this hospital stay, did patient experience: None Coding Level of Care Code Acute g FW [place] note Diagnoses Abnormal uterine bleeding (AUB) N93.9 Tachycardia R00.0 Severe anemia D64.9
== END 2020-07-30 10:15 | disposition home or self-care (01) ==
LOC: ER 22:29 → OBGYN 07-30 08:06
PROVIDERS: Admitting Provider Obstetrics & Gynecology; Emergency Provider Family Medicine; PCP Nurse Practitioner Family; Visit Provider Obstetrics & Gynecology
PROC: 0UDB8ZZ Extraction of Endometrium, Via Natural or Artificial Opening Endoscopic (ICD-10-PCS; CPT 58558; principal; 2020-07-29 22:30)
PROC: (CPT 58120; 2020-07-29 22:30)
DX: N92.0 Excessive and frequent menstruation with regular cycle (principal); D64.9 Anemia, unspecified; R00.0 Tachycardia, unspecified
CPT/HCPCS: 58558; 36430; 80053; 81001; 84703; 85025; 85027; 86850; 86900; 86920; 87086; 88305; 93005; 96365; 99285; G0378; J0690; J1100; J1885; J2250; J2405; J2704; J2710; J3010; J3490; J7030; P9016

== ENCOUNTER → 2020-09-07 13:11 | Outpatient (BNVA) | payer OTHER, SELFPAY | PROVIDERS: PCP Nurse Practitioner Family; Visit Provider Obstetrics & Gynecology | DX: D64.9 Anemia, unspecified (principal); N80.0 Endometriosis of uterus; N93.9 Abnormal uterine and vaginal bleeding, unspecified | CPT/HCPCS: 87635 ==

== ENCOUNTER 2020-09-11 11:39 | Observation (INO) | payer OTHER, SELFPAY ==
[2020-09-07 12:24] VITALS: BMI 39.8
--- NOTE | 2020-09-07 13:09 | ANES.PREANE2 ---
Pre-Anesthetic Assessment Pre-Anesthetic Assessment: Height/Weight: Height 1.6 m Weight 102.058 kg Preop Diagnosis: menorrhagia, anemia Proposed Procedure: Operation Date: 09/11/20 10:20 Proposed Procedures p Laparoscopic Assist Vaginal Hysterectomy 10637 d64.9 n93.9 n80.0(Not Applicable) - Jane Thomas MD s bilateral Salpingo-Oophorectomy (Vaginal)(Bilateral) - Jane Thomas MD Was Beta Jessica taken within 24 hours: N/A Was Clonidine taken within 24 hours: N/A Social: Social History: No alcohol and No tobacco Exam: Pre-Anes Outpt Exam: alert, oriented x 3, clear to auscultation bilaterally and regular rate & rhythm Airway: Submandibular: WNL Cervical ROM: WNL MP: 2 Dentition: Full CV/HEM: CV/HEM: Anemia GI: GI: GERD Metabolic: Metabolic: Morbid obesity Neuropsych: Neuropsych: Anxiety and Depression Anesthetic Plan: ASA status: 2 Anesthesia: General Risk of > 500 ml blood loss (7ml/kg in children): No PFSH Anesthesia PFSH: Medical History (Updated 09/04/20 @ 17:47 by Jane Thomas MD) DDD (degenerative disc disease), lumbosacral No pertinent past medical history neghx: htn,dm,thyroid,dvt/pe PCP: VICKIE Tinajero PCOS (polycystic ovarian syndrome) Tachycardia Vaginal bleeding Vitamin D deficiency Surgical History (Updated 08/07/20 @ 08:06 by Toshia Avalos LPN) Hx of section 1) 10/26/2009 2) 11/29/2014 Hx of cholecystectomy Family History Mother Diabetes Heart disease Hypertension Uterine cancer dx age 26 Denies family history of Colon cancer Ovarian cancer Hypercholesteremia Breast cancer Stroke Female Reproductive History: Date of last menstrual period: 07/29/20 Data Anesthesia Cardiac Studies: No Data to Display
[2020-09-07 13:54] LABS: Basophils # 0.1 10^3/uL (0.0-0.1); Basophils % 0.7 %; Eosinophils # 0.1 10^3/uL (0.0-0.8); Eosinophils % 1.8 %; Hematocrit 36.8 % (37.0-47.0); Hemoglobin 11.2 g/dL (11.5-15.3); Lymphocytes # 1.7 10^3/uL (0.8-4.8); Mean Corpuscular HGB Conc 30.4 g/dL (30.0-36.0); Mean Corpuscular Hemoglobin 26.4 pg (28.0-34.0); Mean Corpuscular Volume 86.8 fL (81-99); Mean Platelet Volume 11.6 fL (7.4-10.4); Monocytes # 0.4 10^3/uL (0.2-0.9); Monocytes % 5.7 %; Neutrophils # 4.77 10^3/uL (1.8-7.7); Neutrophils % 67.7 %; Nucleated Red Blood Cells % 0 %; Platelet Count 336 10^3/cmm (130-400); Red Blood Count 4.24 10^6/uL (4.1-5.3); Red Cell Distribution Width 14.2 % (12.1-15.1); White Blood Count 7.1 10^3/uL (4.0-10.0)
[2020-09-07 14:16] LABS: Anion Gap 13.7 (5-19); Blood Urea Nitrogen 6 mg/dL (6-20); Calcium 9.1 mg/dL (8.5-10.5); Carbon Dioxide 28 mmol/L (22-29); Chloride 102 mmol/L (98-107); Glomerular Filtration Rate 141.2 mL/min (90-130); Glucose 104 mg/dL (65-115); Osmolality Calculated 288 mOsm/kg (285-295); Potassium 3.7 mmol/L (3.5-5.1); Sodium 140 mmol/L (136-145)
[2020-09-11] VITALS (17 sets, daily range): BP systolic 106–150; BP diastolic 61–97; PULSE 54–94; RESP 15–22; TEMP 36.1–37.1; O2SAT 91–100
[2020-09-11] MEDS: gabapentin 300 mg Capsule PO (08:43)
[2020-09-11] MEDS: CELEcoxib 200 mg Capsule 400 MG PO (08:43)
[2020-09-11] MEDS: phenazopyridine 100 mg Tablet 200 MG PO (08:44)
[2020-09-11 08:50] LABS: OR HCG Qualitative Urine Negative (Negative)
[2020-09-11] MEDS: ketorolac 30 mg/mL INJ IVP ×2 (08:58→14:33)
[2020-09-11] MEDS: sodium chloride 0.9% 1,000 ML 30 ML IV (08:58)
[2020-09-11] MEDS: acetaminophen 1,000 MG/100 ML PIGGYBACK 400 MG IV (08:58)
--- NOTE | 2020-09-11 09:42 | W.PM.OPSUD ---
Surgery/Procedure H&P Update DATE OF PROCEDURE: September 11, 2020 DATE H&P PERFORMED: 09/04/20 H&P UPDATE INFORMATION: I have reviewed H&P completed within last 30 days, I have examined patient prior to procedure and No changes to prior documentation PREOP DIAGNOSIS: AUB, severe anemia, adenomyosis, uterine prolapse PLANNED PROCEDURE: Operation Date: 09/11/20 10:20 Proposed Procedures p Laparoscopic Assist Vaginal Hysterectomy 02966 d64.9 n93.9 n80.0(Not Applicable) - Jane Thomas MD s bilateral Salpingo-Oophorectomy (Vaginal)(Bilateral) - Jane Thomas MD
--- NOTE | 2020-09-11 12:54 | PM.OP ---
Operative Report Date of procedure: September 11, 2020 Pre-op Diagnosis: AUB, severe anemia, adenomyosis, uterine prolapse Post-op diagnosis: same Post-op Findings: 12 week sized uterus, normal appearing tubes, multiple cysts on ovaries Procedure Done: laparoscopic assisted vaginal hysterectomy with bilateral salpingectomy and cystoscopy Specimens removed/disposition: uterus and bilateral fallopian tubes to pathology Surgeon: Jane Thomas Anesthesia: General Estimated blood loss (mL): 250 IV fluids (mL): 1,300 Urine output (mL): 1,400 Complications: none Condition: stable Disposition: PACU Procedure: The patient was taken to the operating room where general anesthesia was administered and found to be adequate. She was prepped and draped in the normal sterile fashion in the dorsal lithotomy position in [facility]. A Beaver catheter was placed. A weighted speculum was placed into the vagina and the anterior lip of the cervix was grasped with a single tooth tenaculum. The Zumi uterine manipulator was placed. The weighted speculum was removed. The gloves were changed and attention was turned to the abdomen. A 5 mm infraumbilical incision was made. I made several attempts to placed the port, but the patient was just too deep. I extended the incision, grasped the fascia with two Muriel clamps and placed a 5 mm port in the middle of the clamps. The camera was used to confirm the port was placed into the abdomen. The abdomen was insufflated. Two low, lateral 5 mm ports were placed on the left and right under direct visualization from the camera. The right tube was grasped and elevated. Using the laparoscopic cautery, the right fallopian tube was ligated superior to the ovary and removed through the port. This was performed the same way on the left. There was good hemostasis. Attention was then turned to the vaginal portion of the procedure. The weighted speculum was placed into the vagina. The zumi manipulator was removed. The single tooth tenaculum was removed and replaced with the livan's tenaculum. 10 mL of dilute Pitressin was injected at the vesicovaginal junction. A circumferential incision was made at the vesicovaginal junction and the vaginal mucosa reflected cephalad. The posterior peritoneum was entered sharply with the Metzenbaum scissors and the long weighted speculum replaced. Using the Kee clamps the uterosacral ligaments were clamped cut and suture-ligated. Then sequentially the uterine arteries and cardinal ligaments were clamped cut and suture-ligated. A single-tooth tenaculum was used to deliver the uterus. The utero-ovarian ligaments were clamped cut and suture-ligated bilaterally and the specimen was removed. The bilateral ovaries were visualized and found to be hemostatic. The peritoneum was closed with a pursestring using 2-0 Vicryl. The vaginal cuff was closed with 0 Vicryl in a running locked pattern incorporating the uterosacral ligaments into the lateral aspects of the vaginal cuff. The Beaver catheter was removed and the cystoscope advanced into the bladder. The patient was given pyridium and bilateral spill was noted. There were no injuries or deficits noted in the bladder. The cystoscope was removed and the Beaver was replaced. Vaginal packing was placed for good hemostasis. She tolerated the procedure well. Sponge lap and needle counts were correct x3. She was taken to the recovery room in stable condition.
[2020-09-11] MEDS: ondansetron 2 mg/ML SDV 2 mL 4 MG IVP ×2 (13:21→19:05)
[2020-09-11] MEDS: fentaNYL 50 mcg/mL INJ 2mL IVP ×2 (13:22→13:27)
[2020-09-11] MEDS: scopolamine 1.5 Patch 1 PATCH TRANSDERMA (13:37)
[2020-09-11] MEDS: HYDROcodone-acetaminophen 5-325 mg Tablet PO ×2 (14:33→20:50)
--- NOTE | 2020-09-11 15:10 | ANE.PACU2 ---
Inpatient post-anesthesia follow up: Airway intact: Yes Vital signs: Temperature 98.5 F Pulse Rate 79 Respiratory Rate 15 Blood Pressure 150/97 Pulse Oximetry 99 Oxygen Delivery Me thod Room Air Oxygen Flow Rate 8 Fraction of Inspir ed Oxygen Hydration adequate: Yes Nausea and vomiting: No Pain level: 4 Mental status: Baseline
--- NOTE | 2020-09-11 15:32 | PC.NURSE ---
Reviewed conversation that occurred with Dr. Thomas, with the patient. Patient acknowledged she does have anxiety, and does not take medication for it. Currently, there is nothing showing there are any concerns with any vital signs at this time. Asked patient if she would like something for anxiety, and patient denied wanting any medication. Patient reported she would just try not to worry. Encouraged patient to let her nurse know if she changed her mind and wanted something for anxiety, that Dr. Thomas can be contacted. Patient acknowledged understanding.
[2020-09-11] MEDS: dextrose 5%-lactated ringers 1,000 ML 125 ML IV (17:00)
[2020-09-11] MEDS: docusate sodium 100 mg Capsule PO (18:14)
[2020-09-11] MEDS: simethicone 80 mg Chew PO (18:14)
[2020-09-12] MEDS: dextrose 5%-lactated ringers 1,000 ML 125 ML IV (02:04)
[2020-09-12] MEDS: ondansetron 2 mg/ML SDV 2 mL 4 MG IVP ×2 (02:05→09:49)
[2020-09-12] MEDS: HYDROcodone-acetaminophen 5-325 mg Tablet PO ×2 (03:06→09:50)
[2020-09-12 05:55] LABS: Hematocrit 29.4 % (37.0-47.0); Hemoglobin 8.9 g/dL (11.5-15.3); Mean Corpuscular HGB Conc 30.3 g/dL (30.0-36.0); Mean Corpuscular Hemoglobin 26.5 pg (28.0-34.0); Mean Corpuscular Volume 87.5 fL (81-99); Mean Platelet Volume 11.6 fL (7.4-10.4); Platelet Count 362 10^3/cmm (130-400); Red Blood Count 3.36 10^6/uL (4.1-5.3); Red Cell Distribution Width 14.5 % (12.1-15.1); White Blood Count 11.8 10^3/uL (4.0-10.0)
[2020-09-12] MEDS: simethicone 80 mg Chew PO (06:33)
--- NOTE | 2020-09-12 08:26 | PM.DCS ---
Discharge Providers Date of Admission: 09/11/20 11:39 Date of Discharge: September 12, 2020 Attending Provider at Admission: Jane Thomas MD Attending Provider at Discharge: Jane Thomas MD Primary Care Provider: Gina Nayak Diagnoses at Discharge Discharge Diagnosis (1) Postoperative state: Status: Acute Reason for Visit Reason for Visit: Laparoscopic assisted vaginal hysterectomy, bilate Hospital Course Hospital Course The patient was admitted for surgery. she did well postoperatively and was ready for discharge on day #1 Physical Exam Narrative: EXAM NARRATIVE: The patient is doing well today. She has no complaints. Vaginal packing is removed. Const: COMMON NORMALS: no acute distress, patient oriented x3, no limitations, healthy appearing, alert and well nourished GENERAL APPEARANCE: cooperative, comfortable, well kempt and well developed ORIENTATION/CONSCIOUSNESS: Yes awake, Yes oriented to person, Yes oriented to place and Yes oriented to time Resp: COMMON NORMALS: normal respiratory effort EFFORT & INSPECTION: Yes able to speak in complete sentences : COMMON NORMALS: Yes normal external appearance and Yes normal appearance of the vagina Extremity: COMMON NORMALS: no clubbing, cyanosis or edema and no calf tenderness Neuro: COMMON NORMALS: patient oriented x3 SENSORIUM/ORIENTATION: Yes alert, Yes oriented to person, Yes oriented to place and Yes oriented to time Psych: COMMON NORMALS: mental status grossly normal, Normal thought process present, cooperative, normal affect and speech normal APPEARANCE: Yes grossly normal and Yes well kempt ATTITUDE: Yes calm and Yes engaged ACTIVITY/MOTOR BEHAVIOR: Yes appropriate eye contact SPEECH: Yes normal speech THOUGHT PROCESS: Normal thought process present Urinary Catheter Management^: Beaver: Cath Placed During This Visit: yes, but has since been removed by the nurse Reason for Continuing Indwelling Catheter: Decision to DC Catheter Urinary Catheter Date of Insertion: 09/11/20 Urinary Catheter Time of Insertion: 10:39 Date Urinary Catheter Removed: 09/12/20 Time Urinary Catheter Discontinued: 08:13 Discharge Data Data Completed and Pending: Pending at discharge Category Date Time Status ES surgery / GI i mages Routine Exams 09/11/20 09:28 Taken Pathology: Surgic al [PTH] Routine Pth 09/11/20 12:33 Received Labs from last 24 hours 09/12/20 09/11/20 05:38 08:48 WBC 11.8 H RBC 3.36 L Hgb 8.9 L Hct 29.4 L MCV 87.5 MCH 26.5 L MCHC 30.3 RDW 14.5 Plt Count 362 MPV 11.6 H Urine HCG, Qual Negative Vitals: Last Vital Signs Temp 98.7 F 09/11/20 21:43 Pulse 85 09/11/20 21:43 Resp 15 09/11/20 16:58 BP 122/76 09/11/20 21:43 Pulse Ox 96 09/11/20 21:43 Discharge Plan Discharge Patient Disposition: Home Condition: Stable Prescriptions: New hydrocodone-acetaminophen 5-325 mg Tablet 1 tab PO Q4H PRN (Reason: Moderate To Severe Pain) Qty: 30 RF: 0 Zofran 4 mg tablet 4 mg PO Q6H Qty: 30 RF: 0 Continued ferrous sulfate [Yas-Time] 325 mg (65 mg iron) tablet 650 mg PO DAILY RF: 0 ibuprofen 800 mg tablet 800 mg PO TID PRN (Reason: pain) Qty: 90 RF: 0 omeprazole 20 mg Capsule,Delayed Release(Dr/Ec) 20 mg PO PRN RF: 0 Mery Apple Cider Vinegar Gummy 1 - 2 tab PO TID PRN (Reason: unknown) RF: 0 clindamycin-benzoyl peroxide 1-5 % gel 1 applic TOPICAL DAILY PRN (Reason: acne) RF: 0 Discharge Orders: Discharge Order (Routine); Ordered 09/12/20 Ordered By: Jane Thomas Referrals: Jane Thomas MD [Physician] - 09/21/20 10:30 am (Your 1 week post-op appointment is scheduled for 09/21/20 @ 10:30 Your 6 week post-op appointment is scheduled for 10/23/20 @ 12:45) Patient Instructions: Laparoscopically Assisted Vaginal Hysterectomy (DC), OB Abdominal Surgery - [facility], OB Discharge Report, OB Food/Drug Interaction Guide, Opioid Safety Discharge Attestations Time Spent in Discharge Care*: less than 30 min Quality Metrics Clinical Quality Measures During this hospital stay, did patient experience: None Coding Level of Care Code Acute Chg FW DC note Diagnoses Postoperative state Z98.890
[2020-09-12] MEDS: docusate sodium 100 mg Capsule PO (09:50)
[2020-09-12 09:57] VITALS: BP 100/64; PULSE 88; RESP 16; TEMP 36.7; O2SAT 97
== END 2020-09-12 10:22 | disposition home or self-care (01) ==
LOC: OBGYN 12:02
PROVIDERS: Anesthesiology; Admitting Provider Obstetrics & Gynecology; PCP Nurse Practitioner Family; Visit Provider Obstetrics & Gynecology
PROC: 0UT9FZZ Resection of Uterus, Via Natural or Artificial Opening With Percutaneous Endoscopic Assistance (ICD-10-PCS; CPT 58552; principal; 2020-09-11 10:10)
PROC: (CPT 58720; 2020-09-11 10:10)
DX: N93.9 Abnormal uterine and vaginal bleeding, unspecified (principal); D64.9 Anemia, unspecified; N80.0 Endometriosis of uterus; E66.01 Morbid (severe) obesity due to excess calories; Z68.39 Body mass index [BMI] 39.0-39.9, adult; E28.2 Polycystic ovarian syndrome; E55.9 Vitamin D deficiency, unspecified
CPT/HCPCS: 58552; 36415; 80048; 84703; 85025; 85027; 87086; 88305; 96365; G0378; J0690; J1100; J1885; J2405; J2704; J2710; J3010; J3490; J7030

== ENCOUNTER → 2020-09-21 13:15 | Outpatient (BNVA) | payer OTHER, SELFPAY | PROVIDERS: PCP Nurse Practitioner Family; Visit Provider Obstetrics & Gynecology | DX: R30.0 Dysuria (principal); Z98.890 Other specified postprocedural states; N32.89 Other specified disorders of bladder; R31.9 Hematuria, unspecified | CPT/HCPCS: 81000; 87086 ==

== ENCOUNTER 2020-12-13 07:05 | Outpatient (CLI) | payer OTHER, SELFPAY ==
--- NOTE | 2020-12-13 07:11 | XR_ITS ---
WS: [id number] KUB, AP view, 12/13/2020 Clinical Data: renal stone Comparison: CT abdomen and pelvis, 12/11/2020. Findings: No abnormal intraabdominal masses are seen. There is no dilatated small bowel or evidence of obstruct ion. There is a 1.0 cm calcification overlying the right kidney. The left kidney shows no calcifications. There are small calcifications in the right side of the true pelvis. There are clips in the right upp er quadrant from a cholecystectomy. There is fecal material obscuring detail over the right kidney. XR/XR KUB [id number] Impression: Right renal calcification.
== END 2020-12-13 07:06 | disposition home or self-care (01) ==
LOC: RAD 07:08
PROVIDERS: PCP Nurse Practitioner Family; Visit Provider Urology
DX: N20.0 Calculus of kidney (principal)
CPT/HCPCS: 74018; 81003

== ENCOUNTER 2020-12-26 06:52 | Outpatient (CLI) | payer OTHER, SELFPAY ==
--- NOTE | 2020-12-26 07:01 | NM_ITS ---
WS: [id number] NUCLEAR MEDICINE RENAL SCINTIGRAPHY INDICATION: Hydronephrosis right kidney. Kidney stone. Back pain. TECHNIQUE: 11.6 mCi DTPA administered. Renal flow and perfusion images. Additional imaging obtained a fter Lasix administration. FINDINGS: Comparison CT December 11, 2020 Relatively normal symmetric bilateral renal perfusion. Slightly decreased perfusion in right kidney m easuring 44% compared to the left 55%. Normal time to peak bilaterally. Normal bilateral emptying after Lasix administration. No evidence of delayed excretion right kidney. Calculated GFR both kidneys 114 NM/NM renal flow w pharm [id number] IMPRESSION: Normal perfusion and excretion right kidney. No evidence of signifi cant obstruction
== END 2020-12-26 06:53 | disposition home or self-care (01) ==
LOC: RAD 06:54
PROVIDERS: PCP Nurse Practitioner Family; Visit Provider Urology
DX: N13.30 Unspecified hydronephrosis (principal)
CPT/HCPCS: 78708; A9539

== ENCOUNTER → 2020-12-29 08:16 | Outpatient (BNVA) | payer OTHER, SELFPAY | PROVIDERS: PCP Nurse Practitioner Family; Visit Provider Urology | DX: N13.30 Unspecified hydronephrosis (principal); R31.9 Hematuria, unspecified | CPT/HCPCS: 81003; 87086 ==

== ENCOUNTER 2022-03-14 15:23 | Outpatient (CLI) | payer OTHER, MEDICAID, SELFPAY ==
--- NOTE | 2022-03-14 15:38 | XR_ITS ---
WS: [id number] ABDOMEN 1 VIEW(S) HISTORY: RIGHT FLANK PAIN COMPARISON: CT 12/11/2020 and prior KUB 12/13/2020 Normal bowel gas pattern. Ovoid calcification measures 13 mm over the RIGHT abdomen. Noted to be within the renal pelvis on a p rior CT. No additional calcifications. Prior cholecystectomy. No bone abnormality. XR/XR abdomen 1V* [id number] IMPRESSION: 1. No change in position or size of the 13 mm RIGHT renal calcification. 2. Prior cholecystectomy.
== END 2022-03-14 15:24 | disposition home or self-care (01) ==
LOC: RAD 15:29
PROVIDERS: PCP Nurse Practitioner Family; Visit Provider Nurse Practitioner Family
DX: R10.9 Unspecified abdominal pain (principal)
CPT/HCPCS: 74018

== ENCOUNTER → 2022-10-24 10:13 | Outpatient (BNVA) | payer OTHER, SELFPAY | PROVIDERS: PCP Nurse Practitioner Family; Visit Provider Nurse Practitioner Family | DX: E28.2 Polycystic ovarian syndrome (principal); E66.9 Obesity, unspecified | CPT/HCPCS: 80053; 80061; 84443 ==

== ENCOUNTER → 2023-03-27 10:03 | Outpatient (BNVA) | payer OTHER, SELFPAY | PROVIDERS: PCP Nurse Practitioner Family; Visit Provider Nurse Practitioner Family | DX: T78.40XA Allergy, unspecified, initial encounter (principal); F41.9 Anxiety disorder, unspecified; F32.9 Major depressive disorder, single episode, unspecified; E28.2 Polycystic ovarian syndrome; M51.37 Other intervertebral disc degeneration, lumbosacral region; E66.9 Obesity, unspecified; J30.2 Other seasonal allergic rhinitis | CPT/HCPCS: 80053; 80061; 82785; 84443; 85651; 86003; 86008; 86038; 86140 ==

== ENCOUNTER 2023-04-25 08:22 | Emergency (ER) | payer OTHER, MEDICAID, SELFPAY ==
[2023-04-25 08:36] VITALS: BP 146/84; PULSE 81; RESP 17; TEMP 36.6; O2SAT 99; BMI 34.5
--- NOTE | 2023-04-25 09:03 | ED_ITS ---
HPI - Abdominal Pain 2 General: Chief Complaint: Abdominal Pain Stated Complaint: right side abd pain Time Seen by Provider: 04/25/23 08:55 Source: patient Mode of arrival: ambulatory Limitations: no limitations History of Present Illness: Patient is a nice 38-year-old female with a history of urolithiasis here following an episode of acute right upper quadrant abdominal/right flank pain that began around 6 AM this morning after she awoke from sleep. Patient states she drove herself to the emergency department and on the way here she had to head well puller so she could vomit. She states after her episode of vomiting pain seemed to alleviate. She feels like she may have passed a stone. She has not had any urinary complaints. Upon arrival to the emergency department she feels like most of her symptoms have fully resolved stating just feels achy now . She states she just had an appointment with her urologist earlier this week. She had x-ray/ultrasound imaging of her kidneys prior to this appointment that were reportedly normal. Patient is not running fevers. She arrives to the ED in no acute distress with stable vital signs. Patient tells me she is questioning leaving AMA and going home since most of her pain has subsided. She is requesting to hold off on blood work and just wants to know what my urine looks like . MD elicited complaint: abdominal pain Pertinent past history: kidney stones Onset (ago): hour(s) Pain Consistency: now resolved Location: RUQ and R flank Severity: severe Quality: stabbing and sharp Radiation: R flank and back Migration to: no migration Exacerbating factors: nothing Relieving factors: vomiting Associated Symptoms: Reports nausea and vomiting; Denies change in bowel habits, chills, diarrhea, dysuria, fever(s), hematochezia, hematemesis and melena Related Data: Patient : No Review of Systems 2 Const: Denies: fever(s), chills, body aches, fatigue or malaise Card: Denies: chest pain Resp: Denies: dyspnea GI: Reports: abdominal pain (subsided now), nausea and vomiting; Denies: hematemesis, diarrhea, change in bowel habits, hematochezia or melena : Reports: flank pain (subsided now); Denies: difficulty voiding, dysuria, urinary frequency, urinary urgency or urinary hesitancy Musc: Reports: back pain (subsided now); Denies: neck pain, extremity pain, extremity swelling, joint pain or joint swelling Skin/Breast: Denies: rash Neuro: Denies: headache(s), numbness in extremities, weakness in extremities, sensory changes or dizziness PFSH ED 2 PFSH: Medical History Tachycardia Vaginal bleeding No pertinent past medical history neghx: htn,dm,thyroid,dvt/pe PCP: VICKIE Gross Vitamin D deficiency DDD (degenerative disc disease), lumbosacral PCOS (polycystic ovarian syndrome) Surgical History Hx of section 1) 10/26/2009 2) 11/29/2014 Hx of cholecystectomy Family History Mother Diabetes Heart disease Hypertension Uterine cancer dx age 25 Denies family history of Colon cancer Ovarian cancer Hypercholesteremia Breast cancer Stroke Social History Smoking and tobacco/nicotine status: never used tobacco/nicotine Alcohol intake: never Substance/Drug Use: never Marital status: Current occupational status: employed Physical Exam 2 Const: COMMON NORMALS: patient oriented x3, no limitations, alert and well nourished GENERAL APPEARANCE: cooperative NUTRITIONAL APPEARANCE: o verweight ORIENTATION/CONSCIOUSNESS: Yes awake, Yes oriented to person, Yes oriented to place and Yes oriented to time Chest: COMMONS NORMALS: normal inspection of the chest and normal palpation of entire chest wall Resp: COMMON NORMALS: normal respiratory effort and clear to auscultation bilaterally AUSCULTATION: clear to auscultation bilaterally Cardio: COMMON NORMALS: regular rate and regular rhythm RATE: regular rate RHYTHM: regular rhythm GI: COMMON NORMALS: Normal to inspection, nondistended, normoactive bowel sounds present, Soft to palpation, non-tender, No hepatosplenomegaly present and no masses INSPECTION: Yes normal to inspection PALPATION: Yes Soft to palpation and Yes No hepatosplenomegaly present : COMMON NORMALS: Yes no CVA tenderness BLADDER/KIDNEY EXAM: Yes no CVA tenderness Back/Pelvis: COMMON NORMALS: no CVA tenderness and thoracic and lumbar spine normal to inspection Extremity: COMMON NORMALS: normal to inspection GENERAL: Yes normal exam except as noted Neuro: COMMON NORMALS: patient oriented x3, moves all extremities, no focal motor deficits and no sensory deficits noted SENSORIUM/ORIENTATION: Yes alert, Yes oriented to person, Yes oriented to place and Yes oriented to time Skin: COMMON NORMALS: no rashes or lesions noted GENERAL SKIN EXAM: no rashes or lesions noted Course 2 Consultations: Consultation #1: HYDROGEN TREATER at Dr. Mancuso's office-reviewed patient's chart; recommended IM Rocephin here, discharge with PO Cipro, and follow up in office next week; return precautions Vital Signs: Vital signs: Vital Signs Temperature 97.9 F 04/25/23 08:36 Pulse Rate 71 04/25/23 10:35 Respiratory Rate 17 04/25/23 08:36 Blood Pressure 129/81 04/25/23 10:35 Pulse Oximetry 98 04/25/23 10:35 Oxygen Delivery Me thod Room Air 04/25/23 08:36 MDM - Abdominal Pain Medical Decision Making Patient is a 38-year-old female here for right upper abdominal/flank pain beginning this morning. UA showing 3+ blood, 2+ leuks, 55-80 WBCs. She reportedly had a normal urine just earlier this week at Dr. Mancuso's office as she saw him on Friday. Patient has a known right extrarenal pelvis. On today's CT scan this is increased in size with new stranding suggesting an acute pyelonephritis. This was consistent with her UA results. No stone was identified at the site of the ureteral stranding. She did have a nonobstructing central right renal pelvis calcification. Case was ran by nurse practitioner at Dr. Mancuso's office who recommended placing her on Ciprofloxacin and they will follow-up with her next week. She was given IM Rocephin prior to discharge. Strict return ED precautions given to which she verbalized understanding. Medical Records I reviewed the patient's medical records. Lab Data I reviewed the patient's lab results. 04/25/23 09:28 04/25/23 09:28 Labs/Radiology: Laboratory Results WBC 10.96 10^3/uL (3.29-11.43) 04/25/23 09:28 RBC 4.45 10^6/uL (3.85-5.65) 04/25/23 09:28 Hgb 13.50 g/dL (11.27-16.99) 04/25/23: Hct 40.3 % (36-47) 04/25/23: MCV 90.6 fl (85-98) 04/25/23: MCH 30.3 pg (27-33) 04/25/23: MCHC 33.5 g/dL (30-55) 04/25/23: RDW 12.4 % (12.1-15.1) 04/25/23: Plt Count 258 10^3/cmm (157-399) 04/25/23: MPV 10.9 fL (7.4-10.4) H 04/25/23: Neut % (Auto) 87.7 % 04/25/23: Lymph % (Auto) 7.4 % 04/25/23: [place] % (Auto) 3.6 % 04/25/23: Eos % (Auto) 0.4 % 04/25/23: Baso % (Auto) 0.4 % 04/25/23: Neut # (Auto) 9.63 10^3/uL (1.8-7.7) H 04/25/23: Lymph # (Auto) 0.8 10^3/uL (0.8-4.8) 04/25/23: [place] # (Auto) 0.4 10^3/uL (0.2-0.9) 04/25/23: Eos # (Auto) 0.0 10^3/uL (0.0-0.8) 04/25/23: Baso # (Auto) 0.0 10^3/uL (0.0-0.1) 04/25/23: Nucleated RBC % (auto) 0 % 04/25/23 Nucleated RBCs # 0.0 /100WBC 04/25/23: Sodium 140 mmol/L (136-145) 04/25/23: Potassium 3.9 mmol/L (3.5-5.1) 04/25/23: Chloride 104 mmol/L (98-107) 04/25/23: Carbon Dioxide 24 mmol/L (22-29) 04/25/23 09:28 Anion Gap 15.9 (5-19) 04/25/23 09:28 BUN 12 mg/dL (6-20) 04/25/23 09:28 Creatinine 0.7 mg/dL (0.5-0.9) 04/25/23 09:28 GFR Calculation 94.2 mL/min (90-130) 04/25/23 09: Glucose 113 mg/dL (65-115) 04/25/23 09:28 Calculated Osmolality 291 mOsm/kg (285-295) 04/25/23 09:28 Calcium 8.8 mg/dL (8.5-10.5) 04/25/23 09:28 Total Bilirubin 0.3 mg/dL (0.15-1.2) 04/25/23 09:28 AST 13 U/L (0-32) 04/25/23 09:28 ALT 14 U/L (0-33) 04/25/23 09:28 Alkaline Phosphatase 79 U/L (35-105) 04/25/23 09:28 Total Protein 7.3 g/dL (6.6-8.7) 04/25/23 09:28 Albumin 4.1 g/dL (3.5-5.2) 04/25/23 09:28 Globulin 3.2 g/dL (1.3-4.6) 04/25/23 09:28 Lipase 133 U/L (13-60) H 04/25/23 09:28 HCG, Qual Negative (Negative) 04/25/23 09:28 Urine Color Yellow (Yellow) 04/25/23 08:46 Urine Appearance Hazy (CLEAR) A 04/25/23 08:46 Urine pH 5 (5-7) 04/25/23 08:46 Ur Specific [place] 1.020 (1.005-1.030) 04/25/23 08:46 Urine Protein 1+ (Negative) H 04/25/23 08:46 Urine Glucose (UA) Norm (Normal) 04/25/23 08:46 Urine Ketones Negative (Negative) 04/25/23 08:46 Urine Blood 3+ (Negative) H 04/25/23 08:46 Urine Nitrate Negative (Negative) 04/25/23 08:46 Urine Bilirubin Neg (Negative) 04/25/23 08:46 Urine Urobilinogen Neg mg/dL (Negative) 04/25/23 08:46 Ur Leukocyte Esterase 2+ (Negative) H 04/25/23 08:46 Urine RBC 25-40 /hpf (0-2) H 04/25/23 08:46 Urine WBC 55-80 /hpf (0-5) H 04/25/23 08:46 Ur Squamous Epith Cells 5-10 /hpf (0-5) H 04/25/23 08:46 Amorphous Sediment Not Reportable 04/25/23 08:46 Urine Bacteria 1+ /hpf (NONE) H 04/25/23 08:46 Urine Mucus Trace /hpf 04/25/23 08:46 Urine Yeast 1+ /hpf H 04/25/23 08:46 All radiology interpretation(s) finalized by discharge Discharge Plan Discharge Patient Disposition: Home Clinical Impression: Pyelonephritis Condition: Stable Prescriptions: New Cipro 500 mg tablet 500 mg PO Q12H Qty: 14 0RF ondansetron 4 mg tablet,disintegrating 4 mg PO Q8H PRN (Reason: nausea and vomiting) Qty: 14 0RF ketorolac 10 mg tablet 10 mg PO Q8H PRN (Reason: pain) 3 Days Qty: 9 0RF No Action Victoza 3-Temo 0.6 mg/0.1 mL (18 mg/3 mL) pen injector 3 mg SUBCUT DAILY Qty: 15 2RF (DME) pen needle, diabetic [1st Tier Unifine Pentips Plus] 32 gauge x 5/32 needle See Rx Instructions .Route Qty: 100 1RF Rx Instructions: As directed Xyzal 5 mg tablet 5 mg PO DAILY PRN (Reason: allergies) Discharge Orders: Discharge ED (Routine); Ordered 04/25/23 Ordered By: Deborah Page Referrals: Cathy Cabral APN [Primary Care Provider] - Patient Instructions: Pyelonephritis Activity Restrictions/Additional Instructions: As we discussed please contact Dr. Mancuso's office today to schedule an appointment for follow-up next week. They will be expecting your call. Begin your antibiotics immediately. As we discussed you need to seek medical reevaluation for worsening abdominal/flank pain, repetitive episodes of vomiting, inability to hold down your medications, fevers, generally feeling worse or unwell, or any other concerns you may have. Coding Level of Care Code ED [employer] Associate for Renetta Rush
[2023-04-25 09:26] LABS: Add Urine Microscopic? YES; Bilirubin Urine Neg (Negative); Blood Urine 3+ (Negative); Glucose Urine UA Norm (Normal); Ketones Urine Negative (Negative); Leukocyte Esterase Urine 2+ (Negative); Nitrate Urine Negative (Negative); Protein Urine 1+ (Negative); Urine Appearance Hazy (CLEAR); Urine Color Yellow (Yellow); Urobilinogen Urine Neg (Negative); pH Urine 5 (5-7)
[2023-04-25 09:27] LABS: RBC Urine 25-40 /hpf (0-2)
[2023-04-25 09:28] LABS: Bacteria Urine 1+ /hpf; WBC Urine 55-80 /hpf (0-5)
[2023-04-25 09:29] LABS: Add Urine Culture? Yes; Mucus Urine TRACE /hpf
--- NOTE | 2023-04-25 09:36 | CT_ITS ---
WS: [id number] CT ABDOMEN AND PELVIS NONCONTRAST HISTORY: R flank/abdominal pain; hematuria/pyuria on UA TECHNIQUE: Imaging performed through the abdomen and pelvis. Coronal and sagittal reformats are submi tted. All CT scans at [facility] use at least one of these dose optimization techniques: auto mated exposure control; mA and/or kV adjustment per patient size (includes targeted exams where dose is matched to clinical indication); or iterative reconstruction. DLP: 862.61 mGy.cm COMPARISON: 12/11/2020, 09/08/2019 Lower thorax: Lung bases are clear. Visualized heart is normal. No hiatal hernia. Liver: Normal size liver. No mass or bile duct dilatation. Gallbladder: Prior cholecystectomy. No bile duct dilatation. Pancreas: Normal size and attenuation. Normal pancreatic duct. No pancreatitis or mass. Spleen: Normal. Adrenal glands: Normal. No mass. Right kidney: Patient has a very large known extrarenal pelvis. Minimal component of calyceal dilatat ion. There is no perinephric stranding. There is mild stranding at the junction of the extrarenal pel vis with the ureter. Also dilatation of the extrarenal pelvis has progressed over time. No obstructin g calcification is identified. There is a tiny 2 mm nonobstructing calcification in the central renal pelvis. Left kidney: Normal size kidney with no mass or hydronephrosis. Aorta: Normal abdominal aorta, no aneurysm or atherosclerosis. No free fluid, intraperitoneal air or significant lymphadenopathy. GI tract: Normal noncontrast imaging of the stomach, small bowel and colon. No obstruction or wall th ickening. Normal appendix. Abdominal wall: Ventral abdominal wall hernia containing fat only. Moderate-sized hernia with an orif ice measuring 3.2 cm. Pelvis: No free fluid. Prior hysterectomy. Normal urinary bladder. Osseous structures: Unremarkable. IMPRESSION: 1. Patient has a known large RIGHT extrarenal pelvis. The extrarenal pelvis has slightly increased i n size and there is new stranding at the junction of the dilated renal pelvis with the ureter and kelsie y mild new calyceal dilatation suggesting a component of mild obstruction. There is stranding around the extrarenal pelvis and the proximal ureter suggesting an acute pyelonephritis. No stone is identif ied at the site of the ureteral stranding. 2. Nonobstructing central RIGHT renal pelvis calcification. 3. Negative LEFT kidney. 4. Prior cholecystectomy and hysterectomy. 5. Normal appendix.
[2023-04-25 09:46] LABS: Basophils % 0.4 %; Eosinophils % 0.4 %; Hematocrit 40.3 % (36-47); Lymphocytes # 0.8 10^3/uL (0.8-4.8); Lymphocytes % 7.4 %; Mean Corpuscular HGB Conc 33.5 g/dL (30-55); Mean Corpuscular Hemoglobin 30.3 pg (27-33); Mean Corpuscular Volume 90.6 fl (85-98); Mean Platelet Volume 10.9 fL (7.4-10.4); Monocytes # 0.4 10^3/uL (0.2-0.9); Monocytes % 3.6 %; Neutrophils # 9.63 10^3/uL (1.8-7.7); Neutrophils % 87.7 %; Nucleated Red Blood Cells % 0 %; Platelet Count 258 10^3/cmm (157-399); Red Blood Count 4.45 10^6/uL (3.85-5.65); Red Cell Distribution Width 12.4 % (12.1-15.1); White Blood Count 10.96 10^3/uL (3.29-11.43)
[2023-04-25 10:01] LABS: HCG, Serum Qual Negative (Negative)
[2023-04-25 10:05] LABS: Alanine Aminotransferase 14 U/L (0-33); Albumin Level 4.1 g/dL (3.5-5.2); Alkaline Phosphatase 79 U/L (35-105); Anion Gap 15.9 (5-19); Aspartate Amino Transferase 13 U/L (0-32); Blood Urea Nitrogen 12 mg/dL (6-20); Calcium 8.8 mg/dL (8.5-10.5); Carbon Dioxide 24 mmol/L (22-29); Chloride 104 mmol/L (98-107); Creatinine Clr Calc Pharmacy 116.0739; Globulin 3.2 g/dL (1.3-4.6); Glomerular Filtration Rate 94.2 mL/min (90-130); Glucose 113 mg/dL (65-115); Lipase 133 U/L (13-60); Osmolality Calculated 291 mOsm/kg (285-295); Potassium 3.9 mmol/L (3.5-5.1); Sodium 140 mmol/L (136-145); Total Bilirubin 0.3 mg/dL (0.15-1.2); Total Protein 7.3 g/dL (6.6-8.7)
[2023-04-25 10:35] VITALS: BP 129/81; PULSE 71; O2SAT 98
[2023-04-25] MEDS: cefTRIAXone 1,000 MG in water for injection-sterile 2.1 ML 2.10000000000000009 MG IM (11:13)
[2023-04-25 11:18] VITALS: BP 133/73; PULSE 91; O2SAT 98
== END 2023-04-25 11:19 | disposition home or self-care (01) ==
PROVIDERS: Emergency Provider Physician Assistant; PCP Nurse Practitioner Family
DX: N12 Tubulo-interstitial nephritis, not specified as acute or chronic (principal)
CPT/HCPCS: 36415; 74176; 80053; 81001; 83690; 84703; 85025; 87086; 87106; 96372; 99284; J0696

== ENCOUNTER → 2023-06-06 11:58 | Outpatient (BNVA) | payer OTHER, MEDICAID, SELFPAY | PROVIDERS: PCP Nurse Practitioner Family; Visit Provider Urology | DX: N20.0 Calculus of kidney (principal); N13.30 Unspecified hydronephrosis | CPT/HCPCS: 80048 ==

== ENCOUNTER → 2023-07-30 10:10 | Outpatient (BNVA) | payer MEDICAID, SELFPAY | PROVIDERS: PCP Nurse Practitioner Family; Visit Provider Nurse Practitioner Family | DX: E28.2 Polycystic ovarian syndrome (principal); F41.9 Anxiety disorder, unspecified; F32.9 Major depressive disorder, single episode, unspecified; D64.9 Anemia, unspecified; E66.9 Obesity, unspecified | CPT/HCPCS: 80053; 80061; 83036; 84443; 85025 ==

== ENCOUNTER 2024-03-12 05:03 | Emergency (ER) | payer OTHER, MEDICAID, SELFPAY ==
[2024-03-12 05:10] VITALS: BP 182/102; PULSE 86; RESP 20; TEMP 36.5; O2SAT 98; BMI 37.2
--- NOTE | 2024-03-12 05:17 | CTR_ITS ---
PROCEDURE INFORMATION: Exam: CT Abdomen And Pelvis Without Contrast Exam date and time: 03/12/2024 5:49 AM Age: 39 years old Clinical indication: Abdominal pain; Generalized; Prior surgery; Surgery date: 6+ months; Surgery type: Hysterectomy, choley, lithotripsy; Additional info: Right flank pain, history of kidney stones TECHNIQUE: Imaging protocol: Computed tomography of the abdomen and pelvis without contrast. Radiation optimization: All CT scans at this facility use at least one of these dose optimization techniques: automated exposure control; mA and/or kV adjustment per patient size (includes targeted exams where dose is matched to clinical indication); or iterative reconstruction. COMPARISON: No relevant prior studies available. RADIATION DOSE METRICS: Total DLP (mGy-cm): 940.92 FINDINGS: Liver: Normal. No mass. Gallbladder and biliary ducts: Cholecystectomy. Pancreas: Normal. No ductal dilation. Spleen: Normal. No splenomegaly. Adrenal glands: Normal. No mass. Kidneys and ureters: There is a 2 mm right UPJ calculus causing moderate obstructive changes to the renal pelvis and calices. Stomach and bowel: Unremarkable. No obstruction. No mucosal thickening. Appendix: No evidence of appendicitis. Intraperitoneal space: Unremarkable. No free air. No significant fluid collection. Vasculature: Unremarkable. No abdominal aortic aneurysm. Lymph nodes: Unremarkable. No enlarged lymph nodes. Urinary bladder: No additional urinary calculi are seen on either side. Reproductive: Unremarkable as visualized. Bones/joints: Unremarkable. No acute fracture. Soft tissues: Small umbilical hernia containing only fat. CT/CT kidney stone [id number] IMPRESSION: Moderately obstructing 2 mm right UPJ calculus.
--- NOTE | 2024-03-12 05:18 | W.ED.FEMALGU ---
Documented by User: Romeo Donato DO 03/12/24 05:19 HPI - Female Genitourinary General: Chief complaint: Urogenital-Female Stated complaint: flank pain n/v Time Seen by Provider: 03/12/24 05:12 History of Present Illness: Patient presents to the ER with complaints of right lower flank pain that radiates to her groin. She has been having chills nausea vomiting. This all started about 1030 last night. Patient does have a history of kidney stones. Patient rates pain 7 out of 10 currently. Is only on the right side. Related Data Home Medications Medication Instructions Recorded Confirmed ergocalciferol (vitamin D2) 1,250 1,250 mcg PO Q7D 03/12/24 03/12/24 mcg (50,000 unit) capsule esomeprazole magnesium 40 mg 40 mg PO QAM 03/12/24 03/12/24 capsule,delayed release fluticasone propionate 50 1 spray intranasal BID PRN 03/12/24 03/12/24 mcg/actuation nasal allergies spray,suspension levocetirizine 5 mg tablet 5 mg PO DAILY 03/12/24 03/12/24 liraglutide 0.6 mg/0.1 mL (18 mg/3 3 mg SUBCUT DAILY 03/12/24 03/12/24 mL) subcutaneous pen injector (ProNoxistoza 2-Temo) Previous Rx's Medication Instructions Recorded hydrocodone 5 mg-acetaminophen 325 1 - 2 tab PO Q6H PRN pain #14 tabs 03/12/24 mg tablet ondansetron 4 mg disintegrating 4 mg PO Q6H PRN nausea and 03/12/24 tablet vomiting #20 tabs sulfamethoxazole 800 1 tab PO BID 7 days #14 tabs 03/12/24 mg-trimethoprim 160 mg tablet (Bactrim DS) Allergies Allergy/AdvReac Type Severity Reaction Status Date / Time No Known Drug Allergies Allergy ADR-Abdominal Verified 03/12/24 05:14 Pain Review of Systems General: Reports: 10 or more systems reviewed and unremarkable except in HPI and below Physical Exam Const: COMMON NORMALS: no acute distress, average body habitus, patient oriented x3, no limitations, healthy appearing, alert and well nourished HENMT: COMMON NORMALS: normocephalic, atraumatic, hearing grossly normal bilaterally, external ears normal, Normal external nose present and moist oral mucous membranes HEAD & SCALP: normocephalic and atraumatic NOSE: Normal external nose present EXTERNAL EAR: Yes external ears normal Neck/C-Spine: COMMON NORMALS: no JVD Chest: COMMONS NORMALS: normal inspection of the chest and normal palpation of entire chest wall Resp: COMMON NORMALS: normal respiratory effort, No retractions, No use of accessory muscles and clear to auscultation bilaterally AUSCULTATION: clear to auscultation bilaterally Cardio: COMMON NORMALS: no JVD, regular rate, regular rhythm, S1 normal heart sound present, S2 normal heart sound present, No gallops present (Cardio), No clicks present (Cardio), No murmurs present (Cardio) and No rub (Cardio) RATE: regular rate RHYTHM: regular rhythm HEART SOUNDS: S1 normal heart sound present and S2 normal heart sound present GI: COMMON NORMALS: Normal to inspection, nondistended, normoactive bowel sounds present, Soft to palpation, non-tender, No hepatosplenomegaly present and no masses PALPATION: Yes Soft to palpation and Yes No hepatosplenomegaly present Neuro: COMMON NORMALS: patient oriented x3 SENSORIUM/ORIENTATION: Yes alert Course Vital Signs: Vital signs: Vital Signs Temperature 97.7 F 03/12/24 05:10 Pulse Rate 83 03/12/24 08:43 Respiratory Rate 20 H 03/12/24 05:10 Blood Pressure 127/80 03/12/24 08:43 Pulse Oximetry 96 03/12/24 08:43 Oxygen Delivery Me thod Room Air 03/12/24 05:10 MDM - Female Medical Records I reviewed the patient's medical records. Lab Data I reviewed the patient's lab results. 03/12/24 05:24 03/12/24 05:24 Radiology Impressions Abdomen/Pelvis CT 03/12/24 05:17 IMPRESSION: Moderately obstructing 2 mm right UPJ calculus. Laboratory Results WBC 15.09 10^3/uL (3.29-11.43) H 03/12/24 05:24 RBC 4.95 10^6/uL (3.85-5.65) 03/12/24 05:24 Hgb 14.60 g/dL (11.27-16.99) 03/12/24 05:24 Hct 43.6 % (36-47) 03/12/24 05:24 MCV 88.1 fl (85-98) 03/12/24 05:24 MCH 29.5 pg (27-33) 03/12/24 05:24 MCHC 33.5 g/dL (30-55) 03/12/24 05:24 RDW 12.1 % (12.1-15.1) 03/12/24 05:24 Plt Count 313 10^3/cmm (157-399) 03/12/24 05:24 MPV 10.8 fL (7.4-10.4) H 03/12/24 05:24 Neut % (Auto) 81.2 % 03/12/24 05:24 Lymph % (Auto) 11.3 % 03/12/24 05:24 [place] % (Auto) 5.1 % 03/12/24 05:24 Eos % (Auto) 1.4 % 03/12/24 05:24 Baso % (Auto) 0.5 % 03/12/24 05:24 Neut # (Auto) 12.25 10^3/uL (1.8-7.7) H 03/12/24 05:24 Lymph # (Auto) 1.7 10^3/uL (0.8-4.8) 03/12/24 05:24 [place] # (Auto) 0.8 10^3/uL (0.2-0.9) 03/12/24 05:24 Eos # (Auto) 0.2 10^3/uL (0.0-0.8) 03/12/24 05:24 Baso # (Auto) 0.1 10^3/uL (0.0-0.1) 03/12/24 05:24 Nucleated RBC % (auto) 0 % 03/12/24 05:24 Nucleated RBCs # 0.0 /100WBC 03/12/24 05:24 Sodium 138 mmol/L (136-145) 03/12/24 05:24 Potassium 3.5 mmol/L (3.5-5.1) 03/12/24 05:24 Chloride 99 mmol/L (98-107) 03/12/24 05:24 Carbon Dioxide 23 mmol/L (22-29) 03/12/24 05:24 Anion Gap 19.5 (5-19) H 03/12/24 05:24 BUN 11 mg/dL (6-20) 03/12/24 05:24 Creatinine 0.8 mg/dL (0.5-0.9) 03/12/24 05:24 GFR Calculation 80.3 mL/min (90-130) L 03/12/24 05:24 Glucose 116 mg/dL (65-115) H 03/12/24 05:24 Calculated Osmolality 286 mOsm/kg (285-295) 03/12/24 05:24 Calcium 9.8 mg/dL (8.5-10.5) 03/12/24 05:24 Total Bilirubin 0.4 mg/dL (0.15-1.2) 03/12/24 05:24 AST 23 U/L (0-32) 03/12/24 05:24 ALT 28 U/L (0-33) 03/12/24 05:24 Alkaline Phosphatase 88 U/L (35-105) 03/12/24 05:24 Total Protein 7.9 g/dL (6.6-8.7) 03/12/24 05:24 Albumin 4.6 g/dL (3.5-5.2) 03/12/24 05:24 Globulin 3.3 g/dL (1.3-4.6) 03/12/24 05:24 HCG, Qual Negative (Negative) 03/12/24 05:24 Urine Color Yellow (Yellow) 03/12/24 05:24 Urine Appearance Cloudy (CLEAR) A 03/12/24 05:24 Urine pH 7.0 (5-7) 03/12/24 05:24 Ur Specific [place] 1.021 (1.005-1.030) 03/12/24 05:24 Urine Protein Trace (Negative) A 03/12/24 05:24 Urine Glucose (UA) Negative (Normal) 03/12/24 05:24 Urine Ketones Negative (Negative) 03/12/24 05:24 Urine Blood Negative (Negative) 03/12/24 05:24 Urine Nitrate Negative (Negative) 03/12/24 05:24 Urine Bilirubin Negative (Negative) 03/12/24 05:24 Urine Urobilinogen 0.2 mg/dL (Negative) 03/12/24 05:24 Ur Leukocyte Esterase 2+ (Negative) A 03/12/24 05:24 Urine RBC 0-2 /hpf (0-2) 03/12/24 05:24 Urine WBC >100 /hpf (0-5) H 03/12/24 05:24 Ur Squamous Epith Cells 0-5 /hpf (0-5) 03/12/24 05:24 Amorphous Sediment Not Reportable 03/12/24 05:24 Urine Bacteria None seen /hpf (NONE) 03/12/24 05:24 Hyaline Casts 0-4 /lpf H 03/12/24 05:24 All radiology interpretation(s) finalized by discharge Discharge Plan Discharge Patient Disposition: Home Clinical Impression: Urinary tract infection, Ureterolithiasis Condition: Stable Prescriptions: New sulfamethoxazole-trimethoprim [Bactrim DS] 800-160 mg tablet 1 tab PO BID 7 Days Qty: 14 0RF hydrocodone-acetaminophen 5-325 mg tablet 1 - 2 tab PO Q6H PRN (Reason: pain) Qty: 14 0RF ondansetron 4 mg tablet,disintegrating 4 mg PO Q6H PRN (Reason: nausea and vomiting) Qty: 20 0RF No Action esomeprazole magnesium 40 mg capsule,delayed release(DR/EC) 40 mg PO QAM ergocalciferol (vitamin D2) 1,250 mcg (50,000 unit) capsule 1,250 mcg PO Q7D fluticasone propionate 50 mcg/actuation spray,suspension 1 spray INTRANASAL BID PRN (Reason: allergies) levocetirizine 5 mg tablet 5 mg PO DAILY liraglutide [Victoza 2-Temo] 0.6 mg/0.1 mL (18 mg/3 mL) pen injector 3 mg SUBCUT DAILY Discharge Orders: Discharge ED (Routine); Ordered 03/12/24 Ordered By: Aston Arnold Referrals: Cathy Reyes MD [Primary Care Provider] - Patient Instructions: Opioid Safety, Pain Management Activity Restrictions/Additional Instructions: Please contact Dr. Mancuso's office today for prompt follow-up preferably within the next few days. Come back if pain [id number], vomiting, fever, pain [id number], unable to keep antibiotics down, sores in your mouth, increased weakness, any worse or concerns. Make sure to drink plenty of fluid. Please follow-up on your test results with your doctor. 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[employer] Fwd Documented by User: Aston Arnold MD 03/12/24 17:47 HPI - Female Genitourinary General: Chief complaint: Urogenital-Female Stated complaint: flank pain n/v Time Seen by Provider: 03/12/24 05:12 Related Data Home Medications Medication Instructions Recorded Confirmed ergocalciferol (vitamin D2) 1,250 1,250 mcg PO Q7D 03/12/24 03/12/24 mcg (50,000 unit) capsule esomeprazole magnesium 40 mg 40 mg PO QAM 03/12/24 03/12/24 capsule,delayed release fluticasone propionate 50 1 spray intranasal BID PRN 03/12/24 03/12/24 mcg/actuation nasal allergies spray,suspension levocetirizine 5 mg tablet 5 mg PO DAILY 03/12/24 03/12/24 liraglutide 0.6 mg/0.1 mL (18 mg/3 3 mg SUBCUT DAILY 03/12/24 03/12/24 mL) subcutaneous pen injector (Victoza 2-Temo) Previous Rx's Medication Instructions Recorded hydrocodone 5 mg-acetaminophen 325 1 - 2 tab PO Q6H PRN pain #14 tabs 03/12/24 mg tablet ondansetron 4 mg disintegrating 4 mg PO Q6H PRN nausea and 03/12/24 tablet vomiting #20 tabs sulfamethoxazole 800 1 tab PO BID 7 days #14 tabs 03/12/24 mg-trimethoprim 160 mg tablet (Bactrim DS) Allergies Allergy/AdvReac Type Severity Reaction Status Date / Time No Known Drug Allergies Allergy ADR-Abdominal Verified 03/12/24 05:14 Pain Course Vital Signs: Vital signs: Vital Signs Temperature 97.7 F 03/12/24 05:10 Pulse Rate 83 03/12/24 08:43 Respiratory Rate 20 H 03/12/24 05:10 Blood Pressure 127/80 03/12/24 08:43 Pulse Oximetry 96 03/12/24 08:43 Oxygen Delivery Me thod Room Air 03/12/24 05:10 MDM - Female Medical Decision Making Patient presents complaining of sudden onset right flank pain during the night. She has a history of prior kidney stones. She had vomiting associated with this. She denies fever but had some chills. No abdominal pain otherwise. Denies fall or injury. Denies immune compromise. She has had kidney stones before. Denies having diabetes or aneurysms or cancer. She states her pain is much better after pain medication and nausea medicine. No further vomiting. She is alert oriented no acute distress. She had no right CVA tenderness on exam. She moves freely without pain. She has some mild right upper quadrant tenderness. No guarding or rebound. She moves her legs freely. Patient CT scan shows a 2 mm moderately obstructing stone on the right UPJ. Patient also had a white blood cell count of 15,000 and has greater than 100 white cells in her urine with 2+ leukocytes. Creatinine was within normal limits. I discussed with the patient potential for obstructed infection and admission to the hospital. I do not have urology here and she would require transfer. The patient feels that she will do okay at home. Patient is nontoxic-appearing and pain is well-controlled here. Her doctor is at [place] Dr. Mancuso and so I called and consulted with Dr. Dougherty and reviewed patient's results and presentation. He recommends continued outpatient management and to contact Dr. Mancuso for prompt follow-up. He recommended Bactrim and agrees with pain medication. Advised patient pain treatment options including ibuprofen and hydrocodone and balance risk and benefit and alternative options. I prescribed hydrocodone and Bactrim and Zofran. I advised signs symptoms of worsening to watch and return for. The patient wants to follow-up outpatient and declines transfer. Had long informed discussion with her including potential for worsening and developing serious infection and potential need for a stent. Patient however feeling improved and outpatient management reasonable with prompt return instructions. I advised her to return to the hospital if she has pain not controlled with vomiting or fever or not improving. Patient given 1 g Rocephin IV here and will administer 2 L normal saline IV fluid bolus and then discharge per patient request. Lab Data 03/12/24 05:24 03/12/24 05:24 Radiology Impressions Abdomen/Pelvis CT 03/12/24 05:17 IMPRESSION: Moderately obstructing 2 mm right UPJ calculus. Laboratory Results WBC 15.09 10^3/uL (3.29-11.43) H 03/12/24 05:24 RBC 4.95 10^6/uL (3.85-5.65) 03/12/24 05:24 Hgb 14.60 g/dL (11.27-16.99) 03/12/24 05:24 Hct 43.6 % (36-47) 03/12/24 05:24 MCV 88.1 fl (85-98) 03/12/24 05:24 MCH 29.5 pg (27-33) 03/12/24 05:24 MCHC 33.5 g/dL (30-55) 03/12/24 05:24 RDW 12.1 % (12.1-15.1) 03/12/24 05:24 Plt Count 313 10^3/cmm (157-399) 03/12/24 05:24 MPV 10.8 fL (7.4-10.4) H 03/12/24 05:24 Neut % (Auto) 81.2 % 03/12/24 05:24 Lymph % (Auto) 11.3 % 03/12/24 05:24 [place] % (Auto) 5.1 % 03/12/24 05:24 Eos % (Auto) 1.4 % 03/12/24 05:24 Baso % (Auto) 0.5 % 03/12/24 05:24 Neut # (Auto) 12.25 10^3/uL (1.8-7.7) H 03/12/24 05:24 Lymph # (Auto) 1.7 10^3/uL (0.8-4.8) 03/12/24 05:24 [place] # (Auto) 0.8 10^3/uL (0.2-0.9) 03/12/24 05:24 Eos # (Auto) 0.2 10^3/uL (0.0-0.8) 03/12/24 05:24 Baso # (Auto) 0.1 10^3/uL (0.0-0.1) 03/12/24 05:24 Nucleated RBC % (auto) 0 % 03/12/24 05:24 Nucleated RBCs # 0.0 /100WBC 03/12/24 05:24 Sodium 138 mmol/L (136-145) 03/12/24 05:24 Potassium 3.5 mmol/L (3.5-5.1) 03/12/24 05:24 Chloride 99 mmol/L (98-107) 03/12/24 05:24 Carbon Dioxide 23 mmol/L (22-29) 03/12/24 05:24 Anion Gap 19.5 (5-19) H 03/12/24 05:24 BUN 11 mg/dL (6-20) 03/12/24 05:24 Creatinine 0.8 mg/dL (0.5-0.9) 03/12/24 05:24 GFR Calculation 80.3 mL/min (90-130) L 03/12/24 05:24 Glucose 116 mg/dL (65-115) H 03/12/24 05:24 Calculated Osmolality 286 mOsm/kg (285-295) 03/12/24 05:24 Calcium 9.8 mg/dL (8.5-10.5) 03/12/24 05:24 Total Bilirubin 0.4 mg/dL (0.15-1.2) 03/12/24 05:24 AST 23 U/L (0-32) 03/12/24 05:24 ALT 28 U/L (0-33) 03/12/24 05:24 Alkaline Phosphatase 88 U/L (35-105) 03/12/24 05:24 Total Protein 7.9 g/dL (6.6-8.7) 03/12/24 05:24 Albumin 4.6 g/dL (3.5-5.2) 03/12/24 05:24 Globulin 3.3 g/dL (1.3-4.6) 03/12/24 05:24 HCG, Qual Negative (Negative) 03/12/24 05:24 Urine Color Yellow (Yellow) 03/12/24 05:24 Urine Appearance Cloudy (CLEAR) A 03/12/24 05:24 Urine pH 7.0 (5-7) 03/12/24 05:24 Ur Specific [place] 1.021 (1.005-1.030) 03/12/24 05:24 Urine Protein Trace (Negative) A 03/12/24 05:24 Urine Glucose (UA) Negative (Normal) 03/12/24 05:24 Urine Ketones Negative (Negative) 03/12/24 05:24 Urine Blood Negative (Negative) 03/12/24 05:24 Urine Nitrate Negative (Negative) 03/12/24 05:24 Urine Bilirubin Negative (Negative) 03/12/24 05:24 Urine Urobilinogen 0.2 mg/dL (Negative) 03/12/24 05:24 Ur Leukocyte Esterase 2+ (Negative) A 03/12/24 05:24 Urine RBC 0-2 /hpf (0-2) 03/12/24 05:24 Urine WBC >100 /hpf (0-5) H 03/12/24 05:24 Ur Squamous Epith Cells 0-5 /hpf (0-5) 03/12/24 05:24 Amorphous Sediment Not Reportable 03/12/24 05:24 Urine Bacteria None seen /hpf (NONE) 03/12/24 05:24 Hyaline Casts 0-4 /lpf H 03/12/24 05:24 Discharge Plan Discharge Patient Disposition: Home Clinical Impression: Urinary tract infection, Ureterolithiasis Condition: Stable Prescriptions: New sulfamethoxazole-trimethoprim [Bactrim DS] 800-160 mg tablet 1 tab PO BID 7 Days Qty: 14 0RF hydrocodone-acetaminophen 5-325 mg tablet 1 - 2 tab PO Q6H PRN (Reason: pain) Qty: 14 0RF ondansetron 4 mg tablet,disintegrating 4 mg PO Q6H PRN (Reason: nausea and vomiting) Qty: 20 0RF No Action esomeprazole magnesium 40 mg capsule,delayed release(DR/EC) 40 mg PO QAM ergocalciferol (vitamin D2) 1,250 mcg (50,000 unit) capsule 1,250 mcg PO Q7D fluticasone propionate 50 mcg/actuation spray,suspension 1 spray INTRANASAL BID PRN (Reason: allergies) levocetirizine 5 mg tablet 5 mg PO DAILY liraglutide [Victoza 2-Temo] 0.6 mg/0.1 mL (18 mg/3 mL) pen injector 3 mg SUBCUT DAILY Discharge Orders: Discharge ED (Routine); Ordered 03/12/24 Ordered By: Aston Arnold Referrals: Cathy Reyes MD [Primary Care Provider] - Patient Instructions: Opioid Safety, Pain Management Activity Restrictions/Additional Instructions: Please contact Dr. Mancuso's office today for prompt follow-up preferably within the next few days. Come back if pain [id number], vomiting, fever, pain [id number], unable to keep antibiotics down, sores in your mouth, increased weakness, any worse or concerns. Make sure to drink plenty of fluid. Please follow-up on your test results with your doctor. 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
[2024-03-12] MEDS: ondansetron 2 mg/ML SDV 2 mL 4 MG IVP (05:30)
[2024-03-12] MEDS: ketorolac 30 mg/mL INJ IVP (05:31)
[2024-03-12 05:34] LABS: Basophils # 0.1 10^3/uL (0.0-0.1); Basophils % 0.5 %; Eosinophils # 0.2 10^3/uL (0.0-0.8); Eosinophils % 1.4 %; Hematocrit 43.6 % (36-47); Lymphocytes # 1.7 10^3/uL (0.8-4.8); Lymphocytes % 11.3 %; Mean Corpuscular HGB Conc 33.5 g/dL (30-55); Mean Corpuscular Hemoglobin 29.5 pg (27-33); Mean Corpuscular Volume 88.1 fl (85-98); Mean Platelet Volume 10.8 fL (7.4-10.4); Monocytes # 0.8 10^3/uL (0.2-0.9); Monocytes % 5.1 %; Neutrophils # 12.25 10^3/uL (1.8-7.7); Neutrophils % 81.2 %; Nucleated Red Blood Cells % 0 %; Platelet Count 313 10^3/cmm (157-399); Red Blood Count 4.95 10^6/uL (3.85-5.65); Red Cell Distribution Width 12.1 % (12.1-15.1); White Blood Count 15.09 10^3/uL (3.29-11.43)
[2024-03-12 05:39] LABS: Bilirubin Urine Negative (Negative); Blood Urine Negative (Negative); Glucose Urine UA Negative (Normal); Ketones Urine Negative (Negative); Leukocyte Esterase Urine 2+ (Negative); Nitrate Urine Negative (Negative); Protein Urine Trace (Negative); Specific Gravity, Urine 1.021 (1.005-1.030); Urine Appearance Cloudy (CLEAR); Urine Color Yellow (Yellow); Urobilinogen Urine 0.2 mg/dL (Negative)
[2024-03-12 05:44] LABS: Add Urine Microscopic? YES; Bacteria Urine None Seen /hpf; Hyaline Casts Urine 0-4 /lpf; RBC Urine 0-2 /hpf (0-2); Squamous Epithelial Cell Urine 0-5 /hpf (0-5); WBC Urine >100 /hpf (0-5)
[2024-03-12 05:45] LABS: HCG, Serum Qual Negative (Negative)
[2024-03-12 05:50] LABS: Alanine Aminotransferase 28 U/L (0-33); Albumin Level 4.6 g/dL (3.5-5.2); Alkaline Phosphatase 88 U/L (35-105); Anion Gap 19.5 (5-19); Aspartate Amino Transferase 23 U/L (0-32); Blood Urea Nitrogen 11 mg/dL (6-20); Calcium 9.8 mg/dL (8.5-10.5); Carbon Dioxide 23 mmol/L (22-29); Chloride 99 mmol/L (98-107); Creatinine Clr Calc Pharmacy 104.6746; Globulin 3.3 g/dL (1.3-4.6); Glomerular Filtration Rate 80.3 mL/min (90-130); Glucose 116 mg/dL (65-115); Osmolality Calculated 286 mOsm/kg (285-295); Potassium 3.5 mmol/L (3.5-5.1); Sodium 138 mmol/L (136-145); Total Bilirubin 0.4 mg/dL (0.15-1.2); Total Protein 7.9 g/dL (6.6-8.7)
[2024-03-12 05:51] LABS: Add Urine Culture? Yes
[2024-03-12 06:18] VITALS: BP 164/98; PULSE 78; O2SAT 95
[2024-03-12] MEDS: sodium chloride 0.9% 1,000 ML 999 ML IV (06:27)
[2024-03-12] MEDS: cefTRIAXone 1,000 mg SDV 1000 MG IVP (06:27)
[2024-03-12 07:00] VITALS: BP 124/78; PULSE 79; O2SAT 94
[2024-03-12] MEDS: sodium chloride 0.9% 500 ML 999 ML IV (07:47)
[2024-03-12 08:43] VITALS: BP 127/80; PULSE 83; O2SAT 96
== END 2024-03-12 08:44 | disposition home or self-care (01) ==
PROVIDERS: Emergency Medicine; Emergency Provider Emergency Medicine; PCP Family Medicine
DX: N39.0 Urinary tract infection, site not specified (principal); N20.1 Calculus of ureter
CPT/HCPCS: 74176; 80053; 81001; 84703; 85025; 87086; 96361; 96374; 96375; 99285; J0696; J1885; J2405; J7030; J7040